=== PATIENT | male | born 1985 | race Native Hawaiian/Other Pacific Islander ===

== ENCOUNTER 2022-04-18 16:59 | Emergency (ER) | payer SELFPAY ==
[~2022-04-18] VITALS: Ht 177.8 cm; Wt 95.2 kg
[2022-04-18 17:54] LABS: BASOPHILS ABSOLUTE AUTO 0.05 K/mm3 (0.00-0.23); BASOPHILS PERCENT AUTO 1 % (0-2); EOSINOPHILS ABSOLUTE AUTO 0.06 K/mm3 (0.00-0.68); EOSINOPHILS PERCENT AUTO 1 % (0-6); Hematocrit 41.6 % (37.0-53.0); Hemoglobin 15.2 g/dL (13.5-17.5); IMMATURE GRAN ABSOLUTE AUTO 0.06 K/mm3 (0.00-0.10); IMMATURE GRAN PERCENT AUTO 1 % (0-1); LYMPHOCYTES ABSOLUTE AUTO 1.91 K/mm3 (0.84-5.20); LYMPHOCYTES PERCENT AUTO 21 % (21-46); MONOCYTES ABSOLUTE AUTO 0.71 K/mm3 (0.16-1.47); MONOCYTES PERCENT AUTO 8 % (4-13); Mean Corpuscular HGB 33.2 pg (26.0-34.0); Mean Corpuscular HGB Conc 36.5 g/dL (31.5-36.5); Mean Corpuscular Volume 91 fL (80-100); Mean Platelet Volume 11.3 fL (9.1-12.4); NEUTROPHILS ABSOLUTE AUTO 6.48 K/mm3 (1.96-9.15); NEUTROPHILS PERCENT AUTO 70 % (41-73); Platelet Count 197 K/mm3 (150-400); RDW Standard Deviation 39.5 fL (35.1-46.3); Red Blood Cell Count 4.58 M/mm3 (4.30-5.90); White Blood Cell Count 9.27 K/mm3 (4.00-11.30)
[2022-04-18 18:03] LABS: Albumin, Blood 3.8 g/dL (3.4-5.0); Albumin/Globulin Ratio 1.2 (0.8-1.8); Bilirubin, Total 0.6 mg/dL (0.1-1.0); Bun/Creatinine Ratio 12.1 (12.0-20.0); Calcium, Blood 8.7 mg/dL (8.5-10.1); Creatinine, Blood 0.74 mg/dL (0.60-1.20); Globulin, Blood 3.3 g/dL (2.2-4.0); Potassium, Blood 3.3 mmol/L (3.5-5.5); Total Protein, Blood 7.1 g/dL (6.4-8.2)
== END 2022-04-18 18:25 | disposition left against medical advice (07) ==
LOC: ER 16:59
PROVIDERS: Student in an Organized Health Care Education/Training Program
DX: M53.3 Sacrococcygeal disorders, not elsewhere classified (principal); W19.XXXA Unspecified fall, initial encounter; Z53.21 Procedure and treatment not carried out due to patient leaving prior to being seen by health care provider
CPT/HCPCS: 70450; 80053; 85025; 99284-25

== ENCOUNTER 2024-09-10 11:24 | Inpatient (IN) | payer OTHER ==
[~2024-09-10] VITALS: Ht 182.9 cm; Wt 130.2 kg
[2024-09-10] VITALS (29 sets, daily range): BP systolic 77–148; BP diastolic 50–101
[2024-09-10 11:50] LABS: BASOPHILS ABSOLUTE AUTO 0.06 K/mm3 (0.00-0.23); BASOPHILS PERCENT AUTO 1 % (0-2); EOSINOPHILS ABSOLUTE AUTO 0.05 K/mm3 (0.00-0.68); EOSINOPHILS PERCENT AUTO 1 % (0-6); Hemoglobin 15.4 g/dL (13.5-17.5); IMMATURE GRAN ABSOLUTE AUTO 0.02 K/mm3 (0.00-0.10); IMMATURE GRAN PERCENT AUTO 0 % (0-1); LYMPHOCYTES ABSOLUTE AUTO 2.12 K/mm3 (0.84-5.20); LYMPHOCYTES PERCENT AUTO 24 % (21-46); MONOCYTES ABSOLUTE AUTO 0.76 K/mm3 (0.16-1.47); MONOCYTES PERCENT AUTO 9 % (4-13); Mean Corpuscular HGB 32.5 pg (26.0-34.0); Mean Corpuscular HGB Conc 35.8 g/dL (31.5-36.5); Mean Corpuscular Volume 91 fL (80-100); Mean Platelet Volume 10.7 fL (9.1-12.4); NEUTROPHILS ABSOLUTE AUTO 5.81 K/mm3 (1.96-9.15); NEUTROPHILS PERCENT AUTO 66 % (41-73); Platelet Count 213 K/mm3 (150-400); RDW Coefficient Variation 12.4 % (11.7-14.2); RDW Standard Deviation 41.2 fL (35.1-46.3); Red Blood Cell Count 4.74 M/mm3 (4.30-5.90); White Blood Cell Count 8.82 K/mm3 (4.00-11.30)
[2024-09-10] MEDS ORDERED: LORazepam 2 MG/ML 1ML Injection ONE (12:02)
[2024-09-10 12:17] LABS: Alanine Aminotransfer (ALT/SGP 306 U/L (12-78); Albumin, Blood 3.5 g/dL (3.4-5.0); Alk Phos 74 U/L (50-136); Anion Gap 8 mmol/L (3-11); Aspartate Aminotrans (AST/SGOT 222 U/L (12-37); Bilirubin, Total 0.1 mg/dL (0.1-1.0); Blood Urea Nitrogen 9 mg/dL (8-24); Bun/Creatinine Ratio 12.4 (12.0-20.0); CO2, Blood 24 mmol/L (21-32); Calcium, Blood 8.6 mg/dL (8.5-10.1); Chloride, Blood 111 mmol/L (98-108); Creatinine, Blood 0.72 mg/dL (0.60-1.20); Ethanol (Alcohol), Blood, Med 152 mg/dL; Globulin, Blood 3.5 g/dL (2.2-4.0); Glomerular Filtration Rate 119 (60-); Glucose, Blood 110 mg/dL (70-99); Potassium, Blood 3.6 mmol/L (3.5-5.5); Sodium, Blood 139 mmol/L (136-145)
[2024-09-10 12:18] LABS: Acetaminophen, Random <2.0 ug/mL (10.0-30.0)
[2024-09-10 12:20] LABS: Salicylate 55.1 mg/dL (2.8-20.0)
[2024-09-10 12:32] LABS: Influenza A, PCR NEGATIVE (NEGATIVE); Influenza B, PCR NEGATIVE (NEGATIVE); Resp Syncytial Virus, PCR NEGATIVE (NEGATIVE); SARS-Cov-2 (COVID-19) PCR, MMC NEGATIVE (NEGATIVE)
[2024-09-10] MEDS ORDERED: LORazepam 2 MG/ML 1ML Injection IV ONE (12:35)
[2024-09-10 12:46] LABS: Source, Urine Clean Catch
[2024-09-10 12:50] LABS: Appearance, Urine Clear (Clear); Bilirubin, Urine Neg (Neg); Blood, Urine 2+ (Neg); Glucose Qualitative, Urine Neg (Neg); Ketones, Urine Neg (Neg); Leukocyte Esterase, Urine Neg (Neg); Nitrite, Urine Neg (Neg); Protein, Urine 1+ (Neg); Specific Gravity, Urine 1.015 (1.003-1.022); Urobilinogen, Urine NORM (Normal); pH, Urine 6.5 (5.0-8.0)
[2024-09-10 12:53] LABS: Base Excess Venous -2.7 mmol/L; Bicarbonate Venous 23.5 mmol/L (24.0-30.0); PCO2 Venous 28.1 mmHg (38-42); pH Blood Venous 7.48 (7.34-7.37)
[2024-09-10 12:54] LABS: pH, Urine 6.5 (5.0-8.0)
[2024-09-10] MEDS ORDERED: LORazepam 2 MG/ML 1ML Injection IV PRN ×2 (12:55)
[2024-09-10] MEDS ORDERED: ChlordiazePOXIDE 25 MG Cap PO PRN ×2 (12:55)
[2024-09-10 12:58] LABS: Color, Urine Pale Yellow (P-Yellow)
[2024-09-10] MEDS ORDERED: NS 1,000 ML IV SCH ×2 (13:00→21:25)
[2024-09-10] MEDS ORDERED: SODIUM BICARB IV SCH (13:00)
[2024-09-10] MEDS ORDERED: DEXTROSE 5% IV SCH (13:00)
[2024-09-10] MEDS ORDERED: POTASSIUM CHLORIDE 40 MEQ IV SCH (13:00)
[2024-09-10 13:02] LABS: Bacteria Not Seen /hpf; Squamous Epithelial Cells Rare /hpf (Few); White Blood Cells, Urine 0-2 /hpf (0-5)
[2024-09-10 13:03] LABS: U Amphetamine Screen Not Detected
[2024-09-10 13:04] LABS: U Barbituate Screen Not Detected; U Benzodiazapine Screen Not Detected; U Buprenorphine Screen Not Detected; U Cannabinoids Screen Not Detected; U Cocaine Screen Not Detected; U Methadone Screen Not Detected; U Methamphetamine Screen Not Detected; U Opiates Screen Not Detected; U Oxycodone Screen Not Detected; U Phencyclidine Screen Not Detected
[2024-09-10] MEDS ORDERED: Potassium Chloride 20 MEQ TabCR PO STA (13:13)
[2024-09-10] MEDS ORDERED: Dextrose 50% 50 ML Syringe IV STA (13:24)
[2024-09-10 14:19] LABS: Base Excess Venous -1.5 mmol/L; Bicarbonate Venous 24.8 mmol/L (24.0-30.0); PCO2 Venous 25.9 mmHg (38-42); pH Blood Venous 7.52 (7.34-7.37)
[2024-09-10 14:28] LABS: Bun/Creatinine Ratio 11.1 (12.0-20.0); Calcium, Blood 8.6 mg/dL (8.5-10.1); Creatinine, Blood 0.72 mg/dL (0.60-1.20); Potassium, Blood 4.4 mmol/L (3.5-5.5)
[2024-09-10 15:22] LABS: BASOPHILS ABSOLUTE AUTO 0.04 K/mm3 (0.00-0.23); BASOPHILS PERCENT AUTO 0 % (0-2); EOSINOPHILS ABSOLUTE AUTO 0.02 K/mm3 (0.00-0.68); EOSINOPHILS PERCENT AUTO 0 % (0-6); Hematocrit 44.4 % (37.0-53.0); Hemoglobin 16.3 g/dL (13.5-17.5); IMMATURE GRAN ABSOLUTE AUTO 0.07 K/mm3 (0.00-0.10); IMMATURE GRAN PERCENT AUTO 0 % (0-1); LYMPHOCYTES ABSOLUTE AUTO 0.85 K/mm3 (0.84-5.20); LYMPHOCYTES PERCENT AUTO 5 % (21-46); MONOCYTES ABSOLUTE AUTO 0.74 K/mm3 (0.16-1.47); MONOCYTES PERCENT AUTO 5 % (4-13); Mean Corpuscular HGB 32.6 pg (26.0-34.0); Mean Corpuscular HGB Conc 36.7 g/dL (31.5-36.5); Mean Corpuscular Volume 89 fL (80-100); Mean Platelet Volume 10.9 fL (9.1-12.4); NEUTROPHILS ABSOLUTE AUTO 14.43 K/mm3 (1.96-9.15); NEUTROPHILS PERCENT AUTO 89 % (41-73); Platelet Count 241 K/mm3 (150-400); RDW Coefficient Variation 12.6 % (11.7-14.2); RDW Standard Deviation 41.5 fL (35.1-46.3); White Blood Cell Count 16.15 K/mm3 (4.00-11.30)
[2024-09-10 15:47] LABS: Base Excess Venous 20.7 mmol/L; Bicarbonate Venous 42.6 mmol/L (24.0-30.0); PCO2 Venous 45.5 mmHg (38-42); pH Blood Venous 7.58 (7.34-7.37)
[2024-09-10] MEDS ORDERED: Charcoal/Sorbitol 50 GM (Cherry Flavor) PO SCH (16:00)
[2024-09-10] MEDS ORDERED: Thiamine HCl 100 MG in NS 50 ML IV SCH (16:00)
[2024-09-10] MEDS ORDERED: Etomidate 2MG / ML 10ML Vial XX ONE (16:31)
[2024-09-10] MEDS ORDERED: Rocuronium Bromide 10 MG/ML 5ML Injection IV ONE (16:31)
[2024-09-10] MEDS ORDERED: Midazolam HCl 1MG / ML 2ML Vial ONE (16:57)
--- NOTE | 2024-09-10 17:02 | NUR ---
EMERGENCY INTUBATION PT RECIEVED 4MG OF VERSED AT 1700. 50 DEEPALI GIVEN AND 30 ATOMIDATE. PT INTUBATED AT 1709. PT EMERGENTLY INTUBATED D/T INCREASING AGGITATION AND NONCOMPLIANCE WITH AN INCREASED RISK TO SELF. WILL CONTINUE WITH THE PLAN OF CARE.
[2024-09-10] MEDS ORDERED: propofoL 100 ML IV SCH (17:15)
[2024-09-10] MEDS ORDERED: FentaNYL Citrate 50 MCG/ML 2 ML Injection ONE (17:23)
[2024-09-10] MEDS ORDERED: FentaNYL Citrate 50 MCG/ML 2 ML Injection IV ONE ×2 (17:25→17:45)
[2024-09-10] MEDS ORDERED: Midazolam HCl 1MG / ML 2ML Vial IV ONE (17:30)
[2024-09-10 18:18] LABS: Bun/Creatinine Ratio 10.7 (12.0-20.0); Calcium, Blood 8.4 mg/dL (8.5-10.1); Creatinine, Blood 0.84 mg/dL (0.60-1.20); Magnesium, Blood 2.1 mg/dL (1.6-2.4); Potassium, Blood 3.9 mmol/L (3.5-5.5)
[2024-09-10 18:20] LABS: Salicylate 87.2 mg/dL (2.8-20.0)
[2024-09-10] MEDS ORDERED: Phenylephrine HCl in 0.9% NaCl 250 ML IV SCH (18:30)
[2024-09-10] MEDS ORDERED: Lactated Ringer's 500 ML IV ONE (18:30)
[2024-09-10 19:06] LABS: Base Excess Venous 3.3 mmol/L; Bicarbonate Venous 26.4 mmol/L (24.0-30.0); PCO2 Venous 41.5 mmHg (38-42); pH Blood Venous 7.43 (7.34-7.37)
[2024-09-10] MEDS ORDERED: Dextrose 50% 50 ML Vial ONE (19:12)
[2024-09-10] MEDS ORDERED: Dextrose 50% 50 ML Vial IV SCH (19:15)
--- NOTE | 2024-09-10 19:30 | NUR ---
PATIENT ARRIVED FROM ED AT 1615. PT CONFUSED ALERT TO SELF ONLY AND COOPERATIVE. PT BECAME AGITATED DURING PLACEMENT OF TRIALYSIS CATHETER. RASS +4. BOTH PERIPHREAL IV'S DISPLACED AT THIS TIME, INFILTRATION OF RAC- BICARB/K, SWELLING VISIBLE. IV ATIVAN ADMINISTERED WITH NO CHANGE. PT WAS ATTEMPTING TO EXIT BED AND KICKING WHILE TRYING TO GRAB AT HIS TRIALYIS CATH. HE WAS NOT REDIRECTABLE AT THIS TIME. PT WAS MEDICATED AND INTUBATED URGENTLY. PATIENT WAS DIAPHORETIC AND AND TACHYPNEIC. NEURO: AXO X1 UPON ARRIVAL TO UNIT. CONFUSED. INTUBATED (SEE NOTE) AND PROPOFOL TITRATED TO 60MCG/KG/MIN DUE TO AGITATION/NOT TOLERATING VENT. LABS WERE DRAWN PER DR FREEMAN/JANE. CARDIAC: SINUS TACH HR 120-150S. SBP 130-150 ON ARRIVAL. PT BECAME HYPOTENSIVE MAP <65 AFTER INTUBATION WITH HR INCREASING TO 170S. NOTIFIED DR LARA. VERBAL ORDERS PLACED FOR NEOSYNEPHRINE GTT TITRATE MAP >65 AND LR 500ML BOLUS. ST ELEVATION NOTED ON TELE WITH HR INCREASE EKG COMPLETED. LUNGS: PT ON RA UPON ARRIVAL WITH RR 22-35. KUSSMALS TYPE BREATHING. SPO2 MAINTAINING >95% ON RA. VENT SETTINGS: BEING ADJUSTED AT CHANGE OF SHIFT. GI: OG TUBE PLACED. XR VERIFICATION WITH ETT TUBE/TRIALYSIS CATH REVIEWED BY DR LARA AT BEDSIDE AND OK FOR USE. : HERRERA CATHETER PLACED AFTER INTUBATION FOR CRITICAL I/O'S, LARGE AMT OF URINE OUTPUT AFTER PLACEMENT. PATIENT BELONGINGS WERE BROUGHT UP WITH HIM FROM THE ER AND PLACED IN THE LOCKED CUPBOARDS IN THE [facility]UN[facility] ROOM.
[2024-09-10 20:00] LABS: Bun/Creatinine Ratio 9.7 (12.0-20.0); Creatinine, Blood 1.03 mg/dL (0.60-1.20); Potassium, Blood 5.6 mmol/L (3.5-5.5)
--- NOTE | 2024-09-10 20:01 | NUR ---
BELONGINGS ALL BELONGINGS SENT HOME WITH MOTHER GILBERTO LOVE, INCLUDING CURTIS WITH FORTUNE AND CREDIT CARDS.
[2024-09-10 20:06] LABS: Base Excess Venous 8.2 mmol/L; Bicarbonate Venous 31.3 mmol/L (24.0-30.0)
[2024-09-10 20:07] LABS: pH Blood Venous 7.55 (7.34-7.37)
[2024-09-10 21:38] LABS: Bicarbonate Venous 31.9 mmol/L (24.0-30.0); pH Blood Venous 7.54 (7.34-7.37)
[2024-09-10 22:05] LABS: Base Excess Venous 9.8 mmol/L; Bicarbonate Venous 32.8 mmol/L (24.0-30.0); PCO2 Venous 36.6 mmHg (38-42)
[2024-09-10 22:06] LABS: pH Blood Venous 7.55 (7.34-7.37)
[2024-09-10 22:12] LABS: Bun/Creatinine Ratio 7.8 (12.0-20.0); Calcium, Blood 8.3 mg/dL (8.5-10.1); Creatinine, Blood 1.03 mg/dL (0.60-1.20); Potassium, Blood 3.7 mmol/L (3.5-5.5)
[2024-09-10 23:39] LABS: Base Excess Venous 11.8 mmol/L; Bicarbonate Venous 34.3 mmol/L (24.0-30.0); PCO2 Venous 37.7 mmHg (38-42); PO2 Venous 43.7 mmHg (38-42)
[2024-09-10 23:40] LABS: pH Blood Venous 7.56 (7.34-7.37)
[2024-09-11] VITALS (105 sets, daily range): BP systolic 86–1013; BP diastolic 51–91
[2024-09-11] MEDS ORDERED: Dextrose 50% 50 ML Vial IV ONE ×5 (00:30→18:20)
[2024-09-11 00:58] LABS: Bun/Creatinine Ratio 7.5 (12.0-20.0); Calcium, Blood 8.1 mg/dL (8.5-10.1); Creatinine, Blood 0.93 mg/dL (0.60-1.20); Potassium, Blood 3.5 mmol/L (3.5-5.5)
[2024-09-11 02:45] LABS: Hematocrit 42.2 % (37.0-53.0); Hemoglobin 15.2 g/dL (13.5-17.5)
[2024-09-11 02:46] LABS: Base Excess Venous 11.5 mmol/L; Bicarbonate Venous 34.3 mmol/L (24.0-30.0); PCO2 Venous 38.1 mmHg (38-42)
[2024-09-11 02:47] LABS: pH Blood Venous 7.56 (7.34-7.37)
[2024-09-11 03:21] LABS: Magnesium, Blood 1.9 mg/dL (1.6-2.4); Salicylate 47.9 mg/dL (2.8-20.0)
[2024-09-11 03:26] LABS: Albumin, Blood 3.5 g/dL (3.4-5.0); Albumin/Globulin Ratio 1.1 (0.8-1.8); Bilirubin, Total 0.4 mg/dL (0.1-1.0); Bun/Creatinine Ratio 7.8 (12.0-20.0); Calcium, Blood 8.2 mg/dL (8.5-10.1); Creatinine, Blood 1.15 mg/dL (0.60-1.20); Globulin, Blood 3.3 g/dL (2.2-4.0); Phosphorus, Blood 2.3 mg/dL (2.5-4.9); Potassium, Blood 3.5 mmol/L (3.5-5.5); Total Protein, Blood 6.8 g/dL (6.4-8.2)
[2024-09-11 04:34] LABS: Base Excess Venous 12.1 mmol/L; Bicarbonate Venous 34.5 mmol/L (24.0-30.0); PCO2 Venous 37.9 mmHg (38-42)
[2024-09-11 04:35] LABS: pH Blood Venous 7.56 (7.34-7.37)
[2024-09-11] MEDS ORDERED: POTASSIUM CHLORIDE 20 MEQ IV SCH (05:25)
[2024-09-11] MEDS ORDERED: DEXTROSE 5% IV SCH ×2 (05:25→12:25)
[2024-09-11] MEDS ORDERED: SODIUM BICARB IV SCH ×2 (05:25→12:25)
--- NOTE | 2024-09-11 05:50 | NUR ---
END OF SHIFT REPORT: THIS PT REMAINS ON VENTILATOR AND SEDATED WITH PROPOFOL GTT. AT THE BEGINNING OF THE SHIFT PATIENT WAS AWAKE AND AGITATED, HR IN THE 170s AND ON PHENYLEPHERINE GTT WITH SOFT BP. DIALYSIS WAS STARTED ON THIS PT AND 3 FILTERS WERE USED FOR A TOTAL RUN TIME OF ABOUT 7 HOURS. SERIAL VBGs AND SALICYLATE LEVELS WERE TAKEN THROUGHOUT THE NIGHT. THESE LEVELS WERE DISCUSSED WITH POISON CONTROL AND DR LARA THROUGHOUT THE EVENING AND NIGHT. DISCUSSED ELECTROLYTES WITH DR FREEMAN. PLAN IS TO START BICARB DRIP UNTIL DIALYSIS CAN BE RESTARTED THIS AM. PT REMAINS ON PROPOFOL GTT BUT IS AROUSABLE. HE SEEMS TO BE TRACKING ME WHEN I SPEAK TO HIM. HEART RATES HAVE BEEN SINUS TACH 110-120s. PHENYLEPHERINE GTT CURRENTLY ON STANDBY. HE IS TOLERATING VENT AND COMFORTABLE.
[2024-09-11] MEDS ORDERED: Potassium Phosphate Dibasic 10 MM in Dextrose 5% 250 ML IV ONE (06:15)
[2024-09-11] MEDS ORDERED: Cetylpyridinium Chloride 1 EA MISC MT SCH (08:00)
[2024-09-11 08:13] LABS: Base Excess Venous 10.8 mmol/L; Bicarbonate Venous 33.3 mmol/L (24.0-30.0); PCO2 Venous 41.3 mmHg (38-42); pH Blood Venous 7.52 (7.34-7.37)
--- NOTE | 2024-09-11 08:42 | NUR ---
ASSUMUPTION OF CARE: ASSUMED CARE AT START OF SHIFT (0700). PT IS DOING WELL, THEY ARE LAYING IN BED INTUBATED AND SEDATED. PROPOFOL RUNNING PER EMR ORDERS, WHEN AWAKE PT WILL TRACK WITH EYES BUT UNABLE TO FOLLOW COMMANDS AND ANSWER QUESTIONS AT THIS TIME. LUNG SOUNDS ARE CLR AND EQUAL BILATERAL AND DIMINISHED IN THE BASES, ET TUBE SIZE 8.0 AND 24 @ TEETH, VENT SETTIN/640/5/70%. SINUS TACH WITH SYSTOLIC BP: 100'S AND HR: 120'S. HAS PERIPHERAL IV'S 18G IN L FOREARM AND 20G IN R FOREARM, TRIALYSIS CATH IN R NECK. HAS HERRERA CATHETER IN PLACE AND DRAING TO GRAVITY, OG TUBE IN PLACE. SOFT RESTRAINTS ON UPPER EXTREMITIES, WHEN PT IS MORE AWAKE THEY WILL TRY TO GRAB/REMOVE LINES AND CORDS AND MOVE AROUND IN BED. PT WILL RECEIVE DIALYSIS LATER THIS MORNING. LINES, CORDS, AN TUBES PLACED OUT OF REACH. WILL CONTINUE TO MONITOR.
[2024-09-11 08:50] LABS: Albumin, Blood 3.4 g/dL (3.4-5.0); Bilirubin, Total 0.4 mg/dL (0.1-1.0); Bun/Creatinine Ratio 8.3 (12.0-20.0); Creatinine, Blood 1.8 mg/dL (0.60-1.20); Globulin, Blood 3.3 g/dL (2.2-4.0); Potassium, Blood 3.8 mmol/L (3.5-5.5); Salicylate 60.4 mg/dL (2.8-20.0); Total Protein, Blood 6.7 g/dL (6.4-8.2)
[2024-09-11] MEDS ORDERED: Potassium Chloride 10 Meq Tablet SA PO ONE (09:46)
[2024-09-11] MEDS ORDERED: Charcoal/Sorbitol 50 GM (Cherry Flavor) PO SCH (09:47)
[2024-09-11] MEDS ORDERED: Pantoprazole Sodium 40 MG Injection IV SCH (10:23)
[2024-09-11] MEDS ORDERED: Dextrose 50% 50 ML Vial IV PRN (10:40)
--- NOTE | 2024-09-11 11:46 | NUR ---
REQUESTED RECORDS FROM [facility] VIA FAX. REQUESTED LAST VISIT NOTE, MEDICATION LIST, H&P AND POLST/AD ON FILE.
[2024-09-11 11:58] LABS: Base Excess Venous 12.4 mmol/L; Bicarbonate Venous 35.9 mmol/L (24.0-30.0); PCO2 Venous 32.5 mmHg (38-42)
[2024-09-11 12:00] LABS: pH Blood Venous 7.62 (7.34-7.37)
[2024-09-11] MEDS ORDERED: Hydrogen Peroxide 1.5 % Solution MT SCH (12:00)
[2024-09-11] MEDS ORDERED: POTASSIUM CHLORIDE 40 MEQ IV SCH (12:25)
[2024-09-11 12:38] LABS: Bun/Creatinine Ratio 6.5 (12.0-20.0); Calcium, Blood 8.1 mg/dL (8.5-10.1); Creatinine, Blood 0.92 mg/dL (0.60-1.20); Magnesium, Blood 1.9 mg/dL (1.6-2.4); Phosphorus, Blood 1.3 mg/dL (2.5-4.9); Potassium, Blood 3.3 mmol/L (3.5-5.5); Salicylate 29.8 mg/dL (2.8-20.0)
[2024-09-11] MEDS ORDERED: Potassium Phos/Sodium Phos 250 MG PACK PO ONE (12:44)
[2024-09-11] MEDS ORDERED: PALIPERIDONE PO (12:55)
[2024-09-11] MEDS ORDERED: Lithium Carbon450 MG PO (12:56)
[2024-09-11] MEDS ORDERED: Potassium Phosphate Dibasic 15 MM in Dextrose 5% 250 ML IV STA (12:56)
--- NOTE | 2024-09-11 12:56 | NUR ---
SPOKE TO [facility] TO GET UPDATED MEDICATION LIST. PT IS REPORTED TO HAVE ACTIVE PRESCRIPTIONS OF LITHIUM ER 450 MG TAB, 2 TABS PO BEDTIME AND INVEGA ER 9 MG TAB PO DAILY WHICH WAS RECENTLY TITRATED DOWN FROM 12 MG DAILY. LAST LITHIUM LEVEL WAS CHECKED ON 06/21/[address] WAS [address] SPEARS AND PRIMARY RN WITH ABOVE INFORMATION.
[2024-09-11 14:41] LABS: Potassium, Blood 3.1 mmol/L (3.5-5.5); Salicylate 25.8 mg/dL (2.8-20.0)
[2024-09-11] MEDS ORDERED: Potassium Chloride 20 MEQ/15 ML UDC PO ONE (14:55)
[2024-09-11 16:33] LABS: Bicarbonate Venous 34.7 mmol/L (24.0-30.0); pH Blood Venous 7.47 (7.34-7.37)
[2024-09-11 16:49] LABS: Albumin, Blood 2.8 g/dL (3.4-5.0); Albumin/Globulin Ratio 1.1 (0.8-1.8); Bilirubin, Total 0.4 mg/dL (0.1-1.0); Bun/Creatinine Ratio 5.1 (12.0-20.0); Calcium, Blood 7.9 mg/dL (8.5-10.1); Creatinine, Blood 1.18 mg/dL (0.60-1.20); Globulin, Blood 2.5 g/dL (2.2-4.0); Magnesium, Blood 2.4 mg/dL (1.6-2.4); Phosphorus, Blood 1.7 mg/dL (2.5-4.9); Potassium, Blood 2.8 mmol/L (3.5-5.5); Total Protein, Blood 5.3 g/dL (6.4-8.2)
[2024-09-11] MEDS ORDERED: Potassium Phosphate Dibasic 15 MM in Dextrose 5% 250 ML IV SCH (17:00)
--- NOTE | 2024-09-11 18:40 | NUR ---
SHIFT SUMMARY: PT IS DOING WELL, RESTING IN BED. THEY ARE VENTILATED AND SEDATED. PROPOFOL AT 40MCG/KG/MIN. VENT: 16/640/5/30%. SPO2 >95%. WHEN AWAKE THEY ARE ABLE TO TRACK WITH EYES BUT UNABLE TO FOLLOW COMMANDS AT THIS TIME. SINUS TACH WITH SYSTOLIC BP 100 - 120'S AND HR: 100'S. PERIPHERAL IV'S IN L FOREARM AND R FOREARM. TRIALYSIS CATHETER IN R NECK. HERRERA CATHER DRINING TO GRAVITY WITH GREEN TINTED URINE OUTPUT. RECTAL TUBE PLACED, DRAINING TO GRAVITY AND BLACK LIQUID STOOLS. PT RECEIEVED 3 DOSES OF ACTIVATED CHARCOAL VIA OG TUBE. K+ LEVELS HAVE BEEN DECREASING THROUGHOUT THE SHIFT, THEY RECEIVED KCL, K+PHOS, AND K+ ADDED TO SODIUM BICARD GTT. POSION CONTROL HAS BEEN UPDATED ON PT THROUGHOUT THE DAY. SACLICYLATE LEVELS HAVE BEEN DECREASING THROUGHOUT THE DAY WELL. LINES, CORDS, AND TUBES HAVE BEEN PLACED OUT THE REACH.
--- NOTE | 2024-09-11 20:24 | NUR ---
ASSUMPTION OF CARE: ASSUMED CARE OF PT AT 1905 AND PT IS INTUBATED AND SEDATED ON 40MCG/KG/MIN OF PROPOFOL DECREASED TO 20MCG/KG/MIN FOR NEURO ASSESSMENT.PT IS ABLE TO FOLLOW SOME COMMANDS LIKE WIGGLING TOES AND NODS HEAD NO TO PAIN AND TRACKS YOU WITH HIS EYES.PROPOFOL TURNED BACK UP TO 30 MCG/KG/MIN BECAUSE PT WAS UNCOMFORTABLE AND ALSO GIVEN ATIVAN BY RN (SEE EMAR). PT IS CURRENTLY RECIEVING DIALYSIS IN THE ROOM.PT HAS FAMILY AT BEDSIDE.PT HAS BICARB INFUSING AT 200ML/HR.PT HAS A PATENT TRIALYSIS CATH TO THE RIGHT NECK.PT HAS PATENT PERIPHERAL IV'S TO LFA & RAC. PT HAS PATENT HERRERA DRAINING TO GRAVITY.PT HAS A PATENT RECTAL TUBE DRAINING TO GRAVITY. PT HAS OG TUBE CURRENTLY CLAMPED AFTER RECIEVING CHARCOAL. HR IS CURRENTLY IN THE 70-80'S WITH SBP IN THE 90'S-100'S. CURRENTLY IN SR. PT HAS MAINTAINED SATS ABOVE 94-97%.VENT SETTINGS AT AC/VC 16/640/5/30%.LUNG SOUNDS CLEAR.
[2024-09-11] MEDS ORDERED: Potassium Chl 20MEQ/Water100ML 100 ML IV ONE ×2 (20:50→23:30)
[2024-09-11 20:53] LABS: Base Excess Venous 16.8 mmol/L; Bicarbonate Venous 38.2 mmol/L (24.0-30.0); PCO2 Venous 45.2 mmHg (38-42); pH Blood Venous 7.55 (7.34-7.37)
[2024-09-11] MEDS ORDERED: FentaNYL Citrate 50 MCG/ML 2 ML Injection IV PRN (22:25)
[2024-09-11 23:09] LABS: Magnesium, Blood 1.8 mg/dL (1.6-2.4); Salicylate 8.2 mg/dL (2.8-20.0)
[2024-09-11 23:23] LABS: Albumin, Blood 2.8 g/dL (3.4-5.0); Anion Gap 4 mmol/L (3-11); Blood Urea Nitrogen 3 mg/dL (8-24); Bun/Creatinine Ratio 4.3 (12.0-20.0); CO2, Blood 34 mmol/L (21-32); Calcium, Blood 7.9 mg/dL (8.5-10.1); Chloride, Blood 107 mmol/L (98-108); Glomerular Filtration Rate 120 (60-); Glucose, Blood 102 mg/dL (70-99); Phosphorus, Blood 0.8 mg/dL (2.5-4.9); Sodium, Blood 142 mmol/L (136-145)
[2024-09-11] MEDS ORDERED: Potassium Phosphate Dibasic 20 MM in Dextrose 5% 500 ML IV ONE (23:30)
[2024-09-12] VITALS (41 sets, daily range): BP systolic 98–149; BP diastolic 62–100
[2024-09-12 00:34] LABS: Base Excess Venous 13.8 mmol/L; PCO2 Venous 41.6 mmHg (38-42)
[2024-09-12 00:35] LABS: pH Blood Venous 7.55 (7.34-7.37)
[2024-09-12 04:15] LABS: Base Excess Venous 10.7 mmol/L; Bicarbonate Venous 34.6 mmol/L (24.0-30.0); PCO2 Venous 29.5 mmHg (38-42)
[2024-09-12 04:16] LABS: pH Blood Venous 7.64 (7.34-7.37)
[2024-09-12 04:58] LABS: Albumin, Blood 2.7 g/dL (3.4-5.0); Anion Gap 6 mmol/L (3-11); Blood Urea Nitrogen 5 mg/dL (8-24); Bun/Creatinine Ratio 5.2 (12.0-20.0); CO2, Blood 31 mmol/L (21-32); Calcium, Blood 7.5 mg/dL (8.5-10.1); Chloride, Blood 105 mmol/L (98-108); Creatinine, Blood 0.95 mg/dL (0.60-1.20); Glomerular Filtration Rate 104 (60-); Glucose, Blood 106 mg/dL (70-99); Magnesium, Blood 1.7 mg/dL (1.6-2.4); Phosphorus, Blood 1.9 mg/dL (2.5-4.9); Potassium, Blood 2.7 mmol/L (3.5-5.5); Salicylate 2.5 mg/dL (2.8-20.0); Sodium, Blood 139 mmol/L (136-145)
--- NOTE | 2024-09-12 05:09 | NUR ---
SHIFT SUMM: VENT SETTINGS ARE 16/600/5/35% AND SPO2 HAS BEEN AT 90-97%. VENT SETTINGS ADJUSTED PER POISON CONTROL RECCOMENDATION WITH ORDERS FROM DR. WOODS FOR ADJUSTMENT. HR REMAINED IN 70-80'S W/SBP 90-110'S. PT CONTINUES TO RESPOND TO PAIN AND VERBAL STIMULI AND WILL NOD YES WHEN HE IS ASKED IF HE IS IN PAIN AND FOLLOW SIMPLE COMMANDS LIKE SQUEEZING HANDS AND WIGGLING TOES WHEN ASKED.PT RECIEVED PRN ATIVAN AND FENTANYL WHEN HE IS RESTLESS AND AGITATED WITH VENT OR IN PAIN. PROPOFOL AT 40MCG/KG/MIN.HERRERA AND RECTAL TUBE REMAIN PATENT AND DRAINING TO GRAVITY. OG TUBE IS CURRENTLY CLAMPED AND PERIPHERALS REMAIN PATENT. TRIALYSIS CATH IN R NECK REMAINS PATENT. PT RECIEVED A BED BATH THIS SHIFT AND CATH CARE COMPLETED. Q2 BS HAVE BEEN BETWEEN 92-105 THIS SHIFT. PER POISON CONTROL RECCOMENDATION AND PEDRO FRAZIER D/C'ED. KCL AND KPHOS GIVEN THIS SHIFT.
[2024-09-12] MEDS ORDERED: Potassium Chloride 40 MEQ in NS 250 ML IV ONE ×2 (05:15→15:00)
[2024-09-12] MEDS ORDERED: Potassium Chloride 30 MEQ IV ONE (05:30)
[2024-09-12] MEDS ORDERED: Potassium Chl 10MEQ/Water100ML 100 ML IV SCH (05:40)
[2024-09-12] MEDS ORDERED: Potassium Phosphate Dibasic 10 MM in Dextrose 5% 250 ML IV ONE ×2 (05:45→12:15)
[2024-09-12] MEDS ORDERED: Enoxaparin 40 MG/0.4 ML SYR SC SCH (07:00)
--- NOTE | 2024-09-12 08:19 | NUR ---
ASSUMPTION OF CARE: ASSUMED CARE AT START OF SHIFT (0700). PT IS SEDATED AND RESTING IN BED, THEY ARE RESPONSIVE TO VERBAL STIMULI BUT UNABLE TO ANSWER QUESTIONS OR FOLLOW COMMANDS AT THIS TIME. LUNG SOUNDS ARE CLR AND EQUAL BILATERAL, VENT SETTINGS: 16/600/5/35% AND SPO2 >97%. THEY ARE CURRENTLY IN SINUS RYTHM WITH SYSTOLIC BP 100'S, MAP >65 AND HR: 80'S. RECTAL TUBE IN PLACE AND DRAINING TO GRAVITY WITH BLACK LIQUID STOOLS. HERRERA CATHETER IN PLACE AND DRAING TO GRAVITY. THEY HAVE OG TUBE WITH 44CM OF TUBE EXPOSED FROM THE TEETH. TRIALYSIS CATHER IN R NECK. PERIPHERAL IVS: L & R FOREARM. SALICYLATE LEVLE IS DOWN TO 2.5. PT RECEIVED DIALYSIS LAST NIGHT. LINES, CORDS, AND TUBES PLACED OUT OF REACH.
[2024-09-12 11:07] LABS: Base Excess Venous 7.9 mmol/L; Bicarbonate Venous 30.5 mmol/L (24.0-30.0); pH Blood Venous 7.46 (7.34-7.37)
[2024-09-12] MEDS ORDERED: Mag Sulfate 1 GM/D5% 100ML 100 ML IV STA (11:19)
[2024-09-12] MEDS ORDERED: CALCIUM GLUC IN NACL, ISO-OSM 100 ML IV ONE (11:20)
[2024-09-12] MEDS ORDERED: NS 250 ML IV PRN (11:55)
[2024-09-12 11:57] LABS: Albumin, Blood 2.6 g/dL (3.4-5.0); Anion Gap 5 mmol/L (3-11); Blood Urea Nitrogen 7 mg/dL (8-24); Bun/Creatinine Ratio 6.9 (12.0-20.0); CO2, Blood 31 mmol/L (21-32); Calcium, Blood 7.3 mg/dL (8.5-10.1); Chloride, Blood 105 mmol/L (98-108); Creatinine, Blood 1.02 mg/dL (0.60-1.20); Glomerular Filtration Rate 96 (60-); Glucose, Blood 97 mg/dL (70-99); Magnesium, Blood 1.6 mg/dL (1.6-2.4); Phosphorus, Blood 2.7 mg/dL (2.5-4.9); Potassium, Blood 2.7 mmol/L (3.5-5.5); Salicylate <1.7 mg/dL (2.8-20.0); Sodium, Blood 138 mmol/L (136-145)
--- NOTE | 2024-09-12 15:11 | NUR ---
UPDATE/EXTUBATION: PT EXTUBATED ON 09/12/2024 @ 1407, DR. KEENAN AND RT WERE PRESENT IN ROOM DURING EXTUBATATION. PT WAS EXTUBATED TO ROOM AIR AND IS DOING WELL. PT'S FAMILY BROUGHT BACK INTO POST EXTUBATION.
[2024-09-12 16:00] LABS: HEPATITIS B SURFACE ANTIBODY >1000.00 IU/L
[2024-09-12 16:13] LABS: HEPATITIS B SURFACE ANTIGEN Negative (Negative)
[2024-09-12 16:34] LABS: HBV CORE ANTIBODIES,TOTAL Negative (Negative)
[2024-09-12 17:33] LABS: Albumin, Blood 2.8 g/dL (3.4-5.0); Anion Gap 7 mmol/L (3-11); Blood Urea Nitrogen 8 mg/dL (8-24); Bun/Creatinine Ratio 8.4 (12.0-20.0); CO2, Blood 30 mmol/L (21-32); Calcium, Blood 8.3 mg/dL (8.5-10.1); Chloride, Blood 104 mmol/L (98-108); Creatinine, Blood 0.95 mg/dL (0.60-1.20); Glomerular Filtration Rate 104 (60-); Glucose, Blood 106 mg/dL (70-99); Magnesium, Blood 1.8 mg/dL (1.6-2.4); Phosphorus, Blood 3.2 mg/dL (2.5-4.9); Potassium, Blood 3.2 mmol/L (3.5-5.5); Sodium, Blood 138 mmol/L (136-145)
--- NOTE | 2024-09-12 19:17 | NUR ---
SHIFT SUMMARY: PT IS DOING WELL AND RESTING IN BED. THEY WERE EXTUBATED AT 1407 AND HAVE BEEN ON ROOM AIR, SPO2 >97%. THEY ARE ALERT AND ORIENTED AND ABLE TO FOLLOW COMMANDS. PT WILL REACH UP AND TOUCH THEIR TRIALYSIS CATHER, THEY ARE REDIRECTABLE AND NEED TO BE REMINDED NOT TO TOUCH THE TRIALYSIS CATH. PT IS EAGER TO KNOW WHEN THEY CAN GET THE TRIALYSIS CATHERTER REMOVED. PT HAS SITTER. THEY HAVE BEEN IN SINUS RYTHM WITH SYSTOLIC BP 120'S MAP>65 AND HR IN THE 100-110'S. THEIR HERRERA CATHERTER HAS BEEN REMOVED AND URINAL HAS BEEN PLACED AT BEDSIDE. RECTAL TUBE IS IN PLACE AND BLACK LIQUID STOOL IS DRAINIING TO GRAVITY. TRIALYSIS CATHER IN RIJ, PERIPHERAL IV IN R FOREARM. PT IS STILL NPO AND HAVE BEEN TOLERATING WETTENED MOUTH SWABS UNTIL THEY ARE ABLE TO DRINK WATER. THE PT IS ABLE TO REPOSITION THEMSELF IN BED WITH MINIMAL ASSISTANCE. FAMILY HAS BEEN PRESENT AND VISITING WITH PT MOST OF THE DAY. LINES, CORDS, AND TUBES ARE PLACED OUT OF REACH.
[2024-09-12] MEDS ORDERED: Potassium Chl 20MEQ/Water100ML 100 ML IV ONE (19:30)
--- NOTE | 2024-09-12 20:31 | NUR ---
ASSUMPTION OF CARE NOTE: ASSUMED CARE OF PT AT 1905 AND PT IS A&OX3-4 WITH SOME CONFUSION BUT REORIENTABLE.PT IS ON RA W/SPO2 AT 92%. PT'S HR IS IN THE 90'S WITH SBP IN 140'S.PT HAD RECTAL TUBE D/C'D THIS SHIFT. PT IS USING URINAL. PT IS ABLE TO TOLERATE SMALL SIPS OF WATER. PT HAS A NEW PATENT IV TO THE RAC AND A PATENT TRIALYSIS CATH IN R NECK. PT IS STILL WEAK BUT ABLE TO MOVE ALL EXTREMETIES. DENIES SI, STATES HE HAD SOME "IMBALANCES IN HIS HEAD" AT THE TIME OF HIS ATTEMPT. DENIES N/V, HEADACHES, AUDITORY/VISUAL HALLUCINATIONS. PT HAS A 1:1 SITTER AT PT'S DOOR WITH CALL LIGHT IN REACH AND BED LOW AND LOCKED.
[2024-09-13] VITALS (13 sets, daily range): BP systolic 125–158; BP diastolic 76–102
[2024-09-13 03:46] LABS: Hematocrit 35.2 % (37.0-53.0); Hemoglobin 12.3 g/dL (13.5-17.5)
[2024-09-13 04:06] LABS: Albumin, Blood 2.7 g/dL (3.4-5.0); Anion Gap 8 mmol/L (3-11); Blood Urea Nitrogen 8 mg/dL (8-24); Bun/Creatinine Ratio 8.8 (12.0-20.0); CO2, Blood 27 mmol/L (21-32); Chloride, Blood 108 mmol/L (98-108); Glomerular Filtration Rate 111 (60-); Glucose, Blood 89 mg/dL (70-99); Phosphorus, Blood 3.2 mg/dL (2.5-4.9); Potassium, Blood 3.2 mmol/L (3.5-5.5); Salicylate <1.7 mg/dL (2.8-20.0); Sodium, Blood 140 mmol/L (136-145)
[2024-09-13] MEDS ORDERED: Potassium Chloride 10 Meq Tablet SA PO ONE (04:15)
--- NOTE | 2024-09-13 05:13 | NUR ---
SHIFT SUMM: PT HAS BEEN RELAXING IN BED THIS SHIFT AND WITH NO ACUTE CHANGES.PT CONTINUES TO HAVE SITTER AT DOOR FOR SI RISK ALTHOUGH PT CURRENTLY DENYING SI. PT IS A&OX4 AND IS ABLE TO MAKE NEEDS KNOWN.PT IS STILL WEAK BUT ABLE TO USE THE URINAL IND AT BEDSIDE. PT SPO2 HAS MAINTAINED >92%. HR IS IN THE 90'S AND SBP 130-150'S.PT HAS PATENT RAC IV AND R NECK TRIALYSIS. PT HAS TOLERATED PO INTAKE WELL THIS SHIFT, DIET ORDER PLACED FOR PT THIS SHIFT. PT RECIEVED POTASSIUM REPLACEMENT (SEE EMAR). PT REPORTS READY TO GO HOME AND FEELS BETTER. DR. FREEMAN AT BEDSIDE THIS AM TO ROUND, PER DR. FREEMAN TRIALYSIS CATH OKAY TO BE REMOVED AND FOLLOW UP RECCOMENDATION AT HIS OFFICE IN ONE WEEK. PT HAS CALL LIGHT IN REACH AND BED LOW AND LOCKED.
--- NOTE | 2024-09-13 10:40 | NUR ---
CALL TO DR LEAHY TO INQUIRE FOR ASSESSMENT TIME TODAY. PLAN FOR ASSESSMENT SOMETIME THIS AFTERNOON PER DR LEAHY. NOTIFIED PT TRANSFER ORDERS PLACED FOR MEDSURG AND THAT PT NO LONGER ON A MEDICAL HOLD.
[2024-09-13 12:39] LABS: Albumin, Blood 2.7 g/dL (3.4-5.0); Anion Gap 9 mmol/L (3-11); Blood Urea Nitrogen 9 mg/dL (8-24); Bun/Creatinine Ratio 11.2 (12.0-20.0); CO2, Blood 23 mmol/L (21-32); Calcium, Blood 8.3 mg/dL (8.5-10.1); Chloride, Blood 110 mmol/L (98-108); Glomerular Filtration Rate 115 (60-); Glucose, Blood 97 mg/dL (70-99); Magnesium, Blood 2.3 mg/dL (1.6-2.4); Phosphorus, Blood 3.3 mg/dL (2.5-4.9); Potassium, Blood 3.2 mmol/L (3.5-5.5); Sodium, Blood 139 mmol/L (136-145)
[2024-09-13] MEDS ORDERED: Potassium Chloride 20 MEQ TabCR PO ONE (13:15)
[2024-09-13] MEDS ORDERED: LORazepam 1 MG Tab PO ONE (14:30)
--- NOTE | 2024-09-13 15:37 | NUR ---
PHARMACIST AT POISON CONTROL CALLED. PT IS NOW CLEARED FROM TOXICOLOGY MONITORING WITH POISON CONTROL HE STATES THEY WILL NOW DEFER TO MEDICAL TEAM FOR MEDICAL CLEARANCE. HE DID RECOMMEND A REFERRAL BE PLACED FOR TOXICOLOGY FOLLOW UP WITH THE TOXICOLOGY CLINIC HE QUALIFIES FOR FOLLOW UP CARE BASED ON THE SEVERITY OF THIS CASE. FAX RECIEVED WITH INFORMATION FOR [facility]. PHONE [phone]. INCLUDE SOURCE OF EXPOSURE/POISONING/TOXICITY. REFERRALS CAN BE FAXED TP [phone]. PAPERWORK PLACED IN PT CHART WITH PT ID STICKER ATTACHED.
--- NOTE | 2024-09-13 15:55 | NUR ---
SHIFT SUMMARY NEURO: PATIENT ALERT AND ORIENTED X 4. ABLE TO MAKE HIS NEEDS KNOWN. MOVES ALL EXTREMITITES WELL. DECLINED TO GO FOR A WALK ABOUT THE UNIT TODAY. SOFT VOICE WITH SHORT 1-5 WORD VERBAL REPLIES. HE HAS HAD SOME RESTLESS LEGS HE SAYS WITH BLE INTERMITTENT QUICK MOVMENTS. AFFECT IS BLUNTED. DOES NOT MAKE EYE CONTACT. DENIED ANY VISUAL OR AUDIOLOGICAL HALLUCINATIONS. CARDIAC: VSS. SR-STACH SBP 110-140S, HR 90-110S. PULMONARY: CLEAR TO AUSCULATION GI: ABDOMEN IS SOFT/NON TENDER. APPETITE IMPROVING THROUGH OUT THE DAY. DENIES ANY NAUSEA. LAST BM 09/12/24 : URINE YELLOW, USING URINAL AND TOILET IN ROOM. SKIN: HEALING SCRATCHES TO BACK AND SCABS TO BILATERAL FEET. MOBILITY: INDEPENDENT SBA. HIGH SUICIDE RISK. 1:1 SITTER DUE TO RISK FOR SELF HARM. TRIALYSIS CATH REMOVED THIS AM. FAMILY INTO VISIT TODAY. POISON CONTROL CLEARED FROM FURTHER TOXICOLOGY MONITORING. DR. LEAHY INTO ASSESS THIS AFTERNOON, SEE NEW ORDERS. PLAN TO ADMIT TO U SOON PT IS MEDICALLY STABLE FOR TRANSFER. CALL TO DR SPEARS. DR DUDLEY COVERING TO NOTIFY.
[2024-09-13] MEDS ORDERED: LORazepam 1 MG Tab PO PRN (18:50)
--- NOTE | 2024-09-13 19:31 | NUR ---
Assessment and assumed Care Family present at bedside , visiting with patient. Patient awake alert and orientated . Family went home . SI assessment completed with only staff in room. Answering questions appropriately denies SI at this time. Denies pain , moving independently , sitter at bedside. Lungs sounds clear, heart rate SR in 80s , BP stable , PIV present in R AC SL flushed without diffuculty . No edema noted. Bowl tones present Denies n/v Cooperative with care.
[2024-09-13] MEDS ORDERED: OLANZapine 5 MG Tab PO SCH (21:00)
[2024-09-14 03:53] VITALS: BP 126/76
[2024-09-14 04:01] LABS: Hematocrit 36.9 % (37.0-53.0); Hemoglobin 13.2 g/dL (13.5-17.5)
[2024-09-14 04:17] LABS: Albumin, Blood 2.8 g/dL (3.4-5.0); Albumin/Globulin Ratio 0.9 (0.8-1.8); Bilirubin, Direct 0.2 mg/dL (0.0-0.3); Bilirubin, Indirect 0.3 mg/dL (0.1-0.7); Bilirubin, Total 0.5 mg/dL (0.1-1.0); Calcium, Blood 8.6 mg/dL (8.5-10.1); Creatinine, Blood 0.78 mg/dL (0.60-1.20); Globulin, Blood 3.1 g/dL (2.2-4.0); Magnesium, Blood 2.2 mg/dL (1.6-2.4); Potassium, Blood 3.4 mmol/L (3.5-5.5); Total Protein, Blood 5.9 g/dL (6.4-8.2)
[2024-09-14] MEDS ORDERED: Potassium Chloride 10 Meq Tablet SA PO ONE (04:45)
--- NOTE | 2024-09-14 05:58 | NUR ---
Shift Summary Pt slept through the night , vocalize no compliants, denies SI , sitter at bedside . VSS possible discharge to [facility] today. Report to oncoming nurse.
[2024-09-14 07:31] VITALS: BP 135/90
[2024-09-14] MEDS ORDERED: OLAN5A MM (09:03)
[2024-09-14] MEDS ORDERED: Ativan1 MG PO (09:03)
[2024-09-14] MEDS ORDERED: KLOR-CON 1010 ME1 PO (09:08)
--- NOTE | 2024-09-14 10:06 | NUR ---
SHIFT SUMMARY PATIENT ALERT AND ORIENTED X4. ABLE TO MAKE HIS NEEDS KNOWN. 1:1 SITTER AT BEDSIDE. DENIES SI/HI VSS. SINUS RHYTHM. VOIDED AT TOILET/URINAL. LAST BM 09/12 NORMOACTIVE BOWEL TONES. MOBILITY: INDEPENDENT. REGULAR DIET. FAMILY IN TO VISIT THIS MORNING. DISCHARGE COMPLETED AND REVIEWED WITH PT. PT TRANSFERRING TO [facility]. REPORT GIVEN TO [facility]. PLAN TO TRANSFER PT IN 20-30MIN.
== END 2024-09-14 10:47 | DRG 917 ==
LOC: ER 11:24 → ERHOLD 12:51 → ICUE 12:51
PROVIDERS: Emergency Medicine; Family Medicine; Internal Medicine; Internal Medicine Critical Care Medicine; Internal Medicine Nephrology; Student in an Organized Health Care Education/Training Program; ADMIT Hospitalist
PROC: 5A1945Z Respiratory Ventilation, 24-96 Consecutive Hours (ICD-10-PCS; principal; 2024-09-10)
PROC: 0BH17EZ Insertion of Endotracheal Airway into Trachea, Via Natural or Artificial Opening (ICD-10-PCS; principal; 2024-09-10)
PROC: 5A1D70Z Performance of Urinary Filtration, Intermittent, Less than 6 Hours Per Day (ICD-10-PCS; 2024-09-11)
DX: T39.012A Poisoning by aspirin, intentional self-harm, initial encounter (principal); G92.8 Other toxic encephalopathy; J96.01 Acute respiratory failure with hypoxia; E87.20 Acidosis, unspecified; E87.3 Alkalosis; F20.9 Schizophrenia, unspecified; F32.A Depression, unspecified; R74.01 Elevation of levels of liver transaminase levels; F10.10 Alcohol abuse, uncomplicated; R45.1 Restlessness and agitation; I95.9 Hypotension, unspecified; R00.0 Tachycardia, unspecified; E87.6 Hypokalemia; E86.9 Volume depletion, unspecified; E83.39 Other disorders of phosphorus metabolism; E83.42 Hypomagnesemia; E88.09 Other disorders of plasma-protein metabolism, not elsewhere classified; D64.9 Anemia, unspecified; T14.91XA Suicide attempt, initial encounter; R31.29 Other microscopic hematuria; R80.9 Proteinuria, unspecified
CPT/HCPCS: 0241U; 31500; 31720; 36415; 36556; 51702; 71045; 80048; 80053; 80069; 80320; 81001; 81003; 82040; 82248; 82330; 82803; 82947; 83735; 84100; 84132; 85014; 85018; 85025; 86592; 86704; 87340; 93005; 93010; 94002; 94003; 94762; 96374; 99285-25; A9270; C1752; G0480; J0612; J1650; J2060; J2250; J2470; J2704; J3010; J3411; J3475; J3480; J7030; J7050; J7060; J7070; J7120; J7799

== ENCOUNTER 2024-09-14 08:22 | Inpatient (IN) | payer OTHER ==
[~2024-09-14] VITALS: Ht 182.9 cm; Wt 130.9 kg
[~2024-09-14 08:22] MED LIST: Lithium Carbon450 MG PO; PALIPERIDONE PO
[2024-09-14] MEDS ORDERED: Ativan1 MG PO (09:03)
[2024-09-14] MEDS ORDERED: OLAN5A MM (09:03)
[2024-09-14] MEDS ORDERED: KLOR-CON 1010 ME1 PO (09:08)
[2024-09-14 10:58] VITALS: BP 119/94
[2024-09-14 11:20] VITALS: BP 119/94
[2024-09-14] MEDS ORDERED: Acetaminophen 325 MG TABLET PO PRN (11:25)
[2024-09-14] MEDS ORDERED: Aluminum Hydroxide 320MG/5ML 473 ML PO PRN (11:25)
[2024-09-14] MEDS ORDERED: LORazepam 2 MG Tab PO PRN (11:25)
[2024-09-14] MEDS ORDERED: Melatonin 3 MG Tab PO PRN (11:25)
[2024-09-14] MEDS ORDERED: Calcium Carbonate 500 MG Tab Chew PO PRN (11:25)
[2024-09-14] MEDS ORDERED: TraZODone HCl 50 MG Tab PO PRN (11:30)
[2024-09-14] MEDS ORDERED: Polyethylene Glycol 3350 17 gm PO PRN (11:30)
[2024-09-14] MEDS ORDERED: Ondansetron 4 MG SoluTab MM PRN (11:30)
[2024-09-14] MEDS ORDERED: Ibuprofen 600 MG Tab PO PRN (11:30)
[2024-09-14] MEDS ORDERED: OLANZapine ODT 10 MG Tab MM PRN (11:30)
[2024-09-14] MEDS ORDERED: OLANZapine 10 MG Vial IM PRN (11:35)
--- NOTE | 2024-09-14 12:50 | NUR ---
ADMISSION NOTE PT ARRIVES TO [facility] FROM [facility] ED CRISIS UNIT, ESCORTED BY FLORENCE DAVILA AND . PT IS A&O X4, AMBULATORY, AND COOPERATIVE WITH INTAKE PROCESS. SKIN CHECK PERFORMED BY THIS RN AND XOCHILT MIRELES. PT HAS MULTIPLE OLD HEALING SCRATCHES TO HIS BACK FROM WHICH HE STATES IS FROM "WHEN I FELL IN THE EXAM ROOM." HE ALSO PRESENTS WITH TWO CIRCULAR SCABBED WOUNDS TO PEDAL R FOOT AND 2 TOO R FOOT MIDDLE TWO OF WHICH HE DOES NOT RECALL HOW HE GOT THEM. PT DRESSED IN [facility] SCRUBS. DURING ASSESSMENT PT STATES HE TOOK ABOUT 400 ASPIRIN 325 MG TABS BECAUSE, "I DIDN'T WANT TO HAVE TO MOVE BACK HOME AND I FELT LIKE GOD DIDN'T WANT ME." AFTER TAKING THE TABS PT STATES HE CALLED HIS MOTHER AND THE SUICIDE HOTLINE. HE WAS THEN BROUGHT TO [facility] ED FROM WHICH HE ENDED UP IN INTUBATED IN THE ICU. HE WAS EXTUBATED 09/12/24 AND HAS AGREED TO BE A VOLUNTARY ADMISSION AT THIS POINT. HE IS SLIGHTLY ANXIOUS DURING INTAKE AND CONINUOUSLY MOVES FEET AND HANDS. SPEECH IS DELAYED AT TIMES AND VOLUME INCREASES AND DECREASES WITH FREQUENT PAUSES PRIOR TO PROVIDING ANSWERS. HE DENIES HAVING SI/HI AT THIS TIME AND DENIES ANY AVH. HE DOES STATE HE HAD A RECENT BREAK UP WITH "[employer]." STATES HE HAS BEEN LIVING ALONE IN EITHER A HOTEL ROOM OR AT THE [facility]. HE DENIES SUBSTANCE ABUSE AND STATES HE STARTED DRINKING ETOH ABOUT 2 MONTHS AGO, AND HE WAS ETOH+ ON ED ARRIVAL. HE IS A WITH A HX OF PTSD, DMM, AND SCHIZOPHRENIA. HE USUALLY TAKES LITHIUM 900 MG QHS AND PALIPERIDONE 9 MG, BUT HAS NOT HAD THEM SINCE ADMIT. DURING ICU HE RECIEVED DIALYSIS X3-4 AND PRESENTS TO [facility] WITH A SCRATCHY THROAT THAT HE CLEARS FREQUENTLY. HE HAS A FLAT BLUNTED AFFECT AND NEAR THE END OF THE ASSESSMENT HE APPEARS TO GET MORE ANXIOUS AND REQUESTED ATIVAN. PT WAS GIVEN A TOUR OF THE UNIT AND HIS ROOM. HE WAS GIVEN LUNCH IN THE DINNING ROOM AND THEN WENT BACK TO HIS ROOM AND LAY IN HIS BED, STATING HE WASN'T FEELING VERY WELL BUT WILL NOT SPECIFY WHAT IS NOT FEELING WELL. HE WAS MEDICATED WITH ATIVAN FOR ANXIETY. HE INFORMS THIS RN THAT HE HAS A COURT DATE ON 09/19/24 R/T HIS MENTAL HEALTH AND HE RECIEVES CARE FROM [facility], [facility], AND HIS FUR DRY CLEANER HAND IS BINH DENNISON. HE STATES HE USES CIGARETTES BUT HAS NOT SINCE HE CAME TO [facility] AND REFUSED ANY NICOTINE REPLACEMENT OR CEASATION TEACHING.
--- NOTE | 2024-09-14 17:47 | NUR ---
SHIFT NOTE PT UP FOR DINNER MEAL AND AFTER LUNCH SNACK. OTHER HURST HE REMAINED IN HIS ROOM AFTER HIS INTAKE ASSESSMENT. SEE INTAKE NOTES. PT STATES HE IS NOT FEELING "WELL" BUT IS NOT ABLE TO STATES WHAT IS NOT WELL. HE STATES HE IS JUST TIRED AND DID NOT GET MUCH SLEEP THE LAST COUPLE OF NIGHTS. HE HAS BEEN COMPLIANT WITH STAFF AND CALM WITH PEERS.
[2024-09-14] MEDS ORDERED: RisperiDONE 1 MG Tab PO SCH (21:00)
[2024-09-14 21:22] VITALS: BP 85/56
--- NOTE | 2024-09-15 05:31 | NUR ---
SHIFT SUMMARY NO ACUTE EVENTS THIS EVENING. PT DENIES SI, HI, AVTH. PT PLEASANT AND COOPERATIVE. DID NOT WANT TO COME OUT FOR SNACK AND WANTED TO SLEEP. CAME OUT THIS AM ASKING FOR SNACK AND WAS INFORMED ABOUT SNACKTIMES. PT SAID "OK" AND WENT BACK TO BED.
[2024-09-15 07:20] LABS: CHOL/HDL RATIO 3.2; Cholesterol 135 mg/dL (50-200); HDL Cholesterol 42 mg/dL (>39); LDL/HDL RATIO 1.7; Low Density Lipoprotein Chol 70 mg/dL (0-110); Triglycerides 116 mg/dL (30-140); Very Low Density Lipoprot Chol 23 mg/dL (6-28)
[2024-09-15 08:13] VITALS: BP 121/92
[2024-09-15] MEDS ORDERED: Thiamine HCl 100 MG Tab PO SCH (09:00)
[2024-09-15] MEDS ORDERED: Multivitamins 1 Tab PO SCH (09:00)
[2024-09-15] MEDS ORDERED: Folic Acid 1 MG TAB PO SCH (09:00)
--- NOTE | 2024-09-15 17:18 | NUR ---
SHIFT NOTE PT CALM AND COOPERATIVE WITH ALL MEDICATIONS THIS SHIFT. HE HAD C/O ANXIETY X2 TODAY AND WAS MEDICATED WITH ATIVAN BOTH TIMES. NOLBES DID ATTEND A COUPLE OF GROUPS TODAY, BUT DID NOT STAY THROUGHOUT THEIR ENTIRETY. HE MADE LITTLE SOCIAL CONTACT WITH PEERS AND MINIMAL TIME IN THE [place]. HE DID COME OUT OF HIS ROOM FOR ABOUT 20 MIN IN THE AFTERNOON AND AMBULATED THE HALLWAYS. PT DENIES ANY HI/SI/AVH, BUT HE DID APPEAR TO BE LAUGHING TO HIMSELF OCCASSIONALLY WHEN AMBULATING THE HALLWAYS.
[2024-09-15 19:57] VITALS: BP 114/86
--- NOTE | 2024-09-16 05:17 | NUR ---
SHIFT SUMMARY: PT A/O X4. PT IN BED AT THE BEGINNING OF THIS SHIFT. INTERVIEWED AND DENIES SI, HI AND AVH. PLEASANT AND COOPERATIVE. PT UP FOR SNACK TIME. MED COMPLIANT. BACK TO BED AFTER SNACK. SLEEPING WELL . WILL CONTINUE TO MONITOR FOR SAFETY Q 15 MINUTE CHECKS.
[2024-09-16 09:49] LABS: Albumin, Blood 3.3 g/dL (3.4-5.0); Albumin/Globulin Ratio 0.9 (0.8-1.8); Bilirubin, Total 0.4 mg/dL (0.1-1.0); Bun/Creatinine Ratio 21.9 (12.0-20.0); Calcium, Blood 8.8 mg/dL (8.5-10.1); Creatinine, Blood 0.87 mg/dL (0.60-1.20); Globulin, Blood 3.7 g/dL (2.2-4.0); Potassium, Blood 3.7 mmol/L (3.5-5.5)
--- NOTE | 2024-09-16 17:53 | NUR ---
PATIENT HAS A HISTORY OF SCHIZOPHRENIA. IT APPEARS THAT HE IS RESPONDING TO INTERNAL STIMULI, WHISPERING TO SELF. PATIENT HAS SOFT VOICE, LOW VOLUME. HE DENIES HALLUCINATIONS. HE EXPRESSED CONCERN OVER HIS ROOM MATE SAYING "DEVILISH" THINGS TO HIM. HE'D LIKE TO CHANGE ROOMS WHEN POSSIBLE. PATIENT TOOK ALL OF HIS SCHEDULED MEDS AND DID REQUEST A PRN FOR ANXIETY AROUND 545PM. HE WAS GIVEN A ZYPREXA 10 MG SL. TAB. PATIENT DENIES SUICIDAL IDEATION AND STATES HE DOES NOT WANT TO HARM OTHERS. PATIENT DID PARTICIPATE IN GROUPS TODAY AND APPEARS TO ALSO HAVE A GOOD APPETITE.
[2024-09-16 19:20] VITALS: BP 124/89
[2024-09-16] MEDS ORDERED: RisperiDONE 1 MG Tab PO SCH (21:00)
--- NOTE | 2024-09-16 21:21 | NUR ---
MASS SCORE: PATIENT HAS BEEN INTERRUPTED FOR MORE THAN 24 HOURS EVERY TIME HE TRIES TO REST OR SLEEP, BY HIS ROOMMATE. HE IS A PATIENT AND QUIET FELLOW, BUT IS CLEARLY DISTRESSED EVIDENCED BY PACING RESTLESSLY AND VOICING HIS FRUSTRATIONS. HE WAS GIVEN ZYPREXA TO HELP, AND USED COPING SKILLS SUCH COMMUNICATING WITH STAFF APPROPRIATELY AND PACING. HE SPENT TIME IN THE SENSORY ROOM AFTER TAKING THE MEDICATION. CONTINUING TO MONITOR.
--- NOTE | 2024-09-17 05:04 | NUR ---
SHIFT SUMMARY: PT IN BED AT THE BEGING OF THE SHIFT. DENIES SI, HI, AND AVH. PT SAYS THAT HE WAS TIRED HE DID NOT SLEEP WELL ROOMMATE WAS RESTLESS THROUGH THE NIGHT. PT A/O X4. DECLINED SNACK OFFERED AT 1999. MED COMPLIANT. PT HAD HARD TIME SLEEPING TONIGHT ROOMMATE RESTLESS AND IN/OUT OF THE ROOM FREQUENTLY. GIVEN EAR PLUGS TO HELP WITH NOISE. PT DID PACE THE HALLS SOME BEFORE 2200. 2100 GIVEN ZYPREXA AND REPEATED TRAZODONE TO HELP WITH SLEEP. WILL CONTINUE TO MONITOR.
[2024-09-17 07:53] VITALS: BP 105/89
[2024-09-17 10:16] LABS: Albumin, Blood 3.2 g/dL (3.4-5.0); Albumin/Globulin Ratio 0.9 (0.8-1.8); Bilirubin, Total 0.5 mg/dL (0.1-1.0); Bun/Creatinine Ratio 20.1 (12.0-20.0); Calcium, Blood 8.7 mg/dL (8.5-10.1); Creatinine, Blood 0.95 mg/dL (0.60-1.20); Globulin, Blood 3.7 g/dL (2.2-4.0); Potassium, Blood 3.8 mmol/L (3.5-5.5); Total Protein, Blood 6.9 g/dL (6.4-8.2)
--- NOTE | 2024-09-17 12:04 | NUR ---
PATIENT REPORTS THAT HE IS FASTING. [facility] STAFF [facility] REPORTS THAT HE DID NOT EAT BREAKFAST OF LUNCH TODAY. DR. AGUIRRE IS AWARE THAT THE PATIENT DIDN'T EAT BREAKFAST. RISPERIDONE WAS JUST INCREASED TO 3MG. INTERNAL STIMULI MAY BE TO BLAME IF THE PATIENT IS AFRAID THAT FOOD IS POISONED.
--- NOTE | 2024-09-17 16:42 | NUR ---
SHIFT SUMMARY ASSUMED CARE OF PT AT 0900. PT HAS HAD A GOOD DAY, SLEPT OFF/ON THROUGHOUT DAY, PACED IN THE HALLWAY QUITE AWHILE WELL. HE IS NOT VERY ENGAGED WITH THE OTHER PATIENTS, KEEPS TO HIMSELF. PT REFUSED BKFT AND LUNCH AND DAY SNACKS. AFTER SPEAKING TO HIM REGARDING THIS, HE STATED "I JUST WANTED TO TRY FASTING FOR AWHILE". EDUCATED PT ON IMPORTANCE OF NUTRITION DURING HIS MENTAL HEALTH HEALING PROCESS, HE STATED UNDERSTANDING AND THAT HE WILL BE HAVING HIS DINNER TONIGHT. PT HAS DENIED SI/HI BUT ENDORSED INTERNAL STIMULI AND VERY LITTLE SLEEP LAST NIGHT. PT HAS RECEIVED Q15 MIN VISUAL SAFETY CHECKS THROUGHOUT THIS SHIFT.
--- NOTE | 2024-09-18 04:14 | NUR ---
SHIFT SUMMARY: PT A/O X4. DENIES SI, HI, AND AVH. PT IN BED AT THE BEGINNING OF SHIFT. EASILY AWAKENED TO DO INTERVIEW. STATED HIS ROOMMATE IS NOISEY AND HE CAN'T SLEEP WELL. AT THIS TIME ROOMMATE OUT OF THE ROOM. DENIES TO HAVE AH AT THIS TIME. GOT UP AND WALKED THE HALLS WHEN ROOMMATE LOUD. MED COMPLIANT. UP FOR 1999 SNACK. NO ISSUES AT THIS TIME. PT SLEEPING AT THIS TIME. WILL CONTINUE TO MONITOR.
[2024-09-18 08:17] VITALS: BP 107/81
--- NOTE | 2024-09-18 17:06 | NUR ---
SHIFT SUMMARY PT AxOx4. PLEASANT AND COOPERATIVE WITH CARE. PT DENIES SI/HI AND AVTH THIS AM. HE HAS BEEN FOLLOWING TREATMENT PLAN INCLUDING TAKING MEDICATIONS PRESCRIBED, ATTENDING ALL [place] THERAPY GROUPS AND MINGLING APPROPRIATELY WITH PEERS/STAFF. PT WAS MEDICATED x1 TODAY FOR ANXIETY WITH REPORTED RELIEF. PT IS EXPECTING TO DC TOMORROW. [facility] PT IS CURRENTLY IN DINING ROOM EATING DINNER WITH OTHERS. DENIES ANY NEEDS AT THIS TIME.
[2024-09-18 19:37] VITALS: BP 115/83
--- NOTE | 2024-09-19 05:20 | NUR ---
SHIFT SUMMARY NO ACUTE EVENTS OVERNIGHT. PT DENIES SI, HI, AVTH; WHEN ASKED ABOUT PT ENDORSING AUDITORY HALLUCINATIONS TO DOCTOR PER NOTE, PT STATED HE THOUGHT IT WAS A MEDICATION HE WAS BRIEFLY ON AND HASN'T HAD THEM FOR "A WHILE". PT PLEASANT AND COOPERATIVE, WAS IN DAY ROOM BEFORE SNACKTIME. UP SEVERAL TIMES TONIGHT D/T INABILITY TO FALL ASLEEP, PRN'S USED. PT DENIED ANXIOUSNESS, JUST STATED HE WASN'T TIRED.
[2024-09-19] MEDS ORDERED: FOLI1 PO (10:51)
[2024-09-19] MEDS ORDERED: MELA3 PO (10:51)
[2024-09-19] MEDS ORDERED: Hair, Skin & N1 EACH PO (10:52)
[2024-09-19] MEDS ORDERED: RISP3 PO (10:52)
[2024-09-19] MEDS ORDERED: TRAZ50 PO (10:53)
[2024-09-19] MEDS ORDERED: B-1100 M2 PO (10:53)
--- NOTE | 2024-09-19 12:18 | NUR ---
IMPORTANT DISCHARGE INFORMATION PATIENT TO BE DISCHARGED TODAY, 09/19/24. HE HAS MEDICAL SERVICES THROUGH THE [facility]. [phone]. THIS RN REACHED OUT TO DR. WOOD HIS PROVIDER AT THE [facility]. THEY WILL CALL PATIENT FOR FOLLOW UP APPOINTMENT. PHARMACY: [facility] EXT1 FAX =
--- NOTE | 2024-09-19 12:55 | NUR ---
DISCHARGE NOTE/SHIFT SUMMARY PT AxOx4. PLEASANT AND COOPERATIVE WITH CARE. PT DENIED SI/HI AND AVTH THIS AM. HE HAS BEEN FOLLOWING HIS TREATMENT PLAN INCLUDING TAKING MEDICATIONS PRESCRIBED, ATTENDING ALL [employer] THERAPY GROUPS AND MINGLING APPROPRIATELY WITH STAFF/ PEERS. PT IS DISCHARGING TODAY WHERE HE IS RETURNING TO A LOCAL HOTEL. PT WAS PROVIDED DC INSTRUCTIONS INCLUDING DC MED LIST, NEED TO REACH OUT TO [facility] TO SET UP FOLLOW UP APPOINTMENTS AND PATIENT EDUCATION ON DIAGNOSES AND MEDICATIONS. PT VERBALIZED UNDERSTANDING AND WAS SAFELY ESCORTED OUT WITH THIS RN. HIS SALES AND MARKETING DIRECTOR PICKED HIM UP AT APPROX 1300.
--- NOTE | 2024-09-19 12:59 | NUR ---
IMPORTANT DISCHARGE INFORMATION THE [facility] RETURNED MY CALL POST DISCHARGE. THEY WILL REACH OUT TO PANTERA AT TO SCHEDULE ALL HIS FOLLOW UP APPOINTMENTS INCLUDING NEPHROLOGY.
== END 2024-09-19 12:54 | disposition home or self-care (01) | DRG 885 ==
LOC: BHU 08:22
PROVIDERS: ADMIT Student in an Organized Health Care Education/Training Program
DX: F20.0 Paranoid schizophrenia (principal); G24.01 Drug induced subacute dyskinesia; F41.9 Anxiety disorder, unspecified; Z91.51 Personal history of suicidal behavior; Z79.899 Other long term (current) drug therapy
CPT/HCPCS: 36415; 80053; 80061; 83036; A9270

== ENCOUNTER 2024-09-27 19:00 | Inpatient (IN) | payer OTHER ==
[~2024-09-27] VITALS: Ht 188 cm; Wt 127.2 kg
[~2024-09-27 19:00] MED LIST changes: +Ativan1 MG PO; +B-1100 M2 PO; +FOLI1 PO; +Hair, Skin & N1 EACH PO; +KLOR-CON 1010 ME1 PO; +MELA3 PO; +OLAN5A MM; +RISP3 PO; +TRAZ50 PO
[2024-09-27] MEDS ORDERED: NS 1,000 ML IV SCH ×4 (19:15→22:00)
[2024-09-27 19:29] LABS: Chloride (POC) 103 mmol/L (98-108); Creatinine (POC) 0.9 mg/dL (0.8-1.3); Glucose (ISTAT POC) 114 mg/dL (70-99); Hemoglobin (POC) 14.3 g/dL (13.5-17.5); Sodium (POC) 138 mmol/L (135-148); Total CO2 (POC) 23 mmol/L (21-32)
[2024-09-27 19:29] LABS: BASOPHILS ABSOLUTE AUTO 0.08 K/mm3 (0.00-0.23); BASOPHILS PERCENT AUTO 1 % (0-2); EOSINOPHILS ABSOLUTE AUTO 0.17 K/mm3 (0.00-0.68); EOSINOPHILS PERCENT AUTO 2 % (0-6); Hematocrit 40.8 % (37.0-53.0); Hemoglobin 14.9 g/dL (13.5-17.5); IMMATURE GRAN ABSOLUTE AUTO 0.02 K/mm3 (0.00-0.10); IMMATURE GRAN PERCENT AUTO 0 % (0-1); LYMPHOCYTES ABSOLUTE AUTO 1.48 K/mm3 (0.84-5.20); LYMPHOCYTES PERCENT AUTO 19 % (21-46); MONOCYTES ABSOLUTE AUTO 0.53 K/mm3 (0.16-1.47); MONOCYTES PERCENT AUTO 7 % (4-13); Mean Corpuscular HGB 32.9 pg (26.0-34.0); Mean Corpuscular HGB Conc 36.5 g/dL (31.5-36.5); Mean Corpuscular Volume 90 fL (80-100); Mean Platelet Volume 10.8 fL (9.1-12.4); NEUTROPHILS ABSOLUTE AUTO 5.68 K/mm3 (1.96-9.15); NEUTROPHILS PERCENT AUTO 71 % (41-73); Platelet Count 279 K/mm3 (150-400); RDW Coefficient Variation 12.9 % (11.7-14.2); RDW Standard Deviation 42.2 fL (35.1-46.3); Red Blood Cell Count 4.53 M/mm3 (4.30-5.90); White Blood Cell Count 7.96 K/mm3 (4.00-11.30)
[2024-09-27] MEDS ORDERED: Sodium Polystyrene Sulfonate 15GM / 60ML BTL PO ONE (19:35)
[2024-09-27 20:01] LABS: Ethanol (Alcohol), Blood, Med <3 mg/dL; Free Thyroxine 1.18 ng/dL (0.70-1.60); Magnesium, Blood 2.2 mg/dL (1.6-2.4); Salicylate <1.7 mg/dL (2.8-20.0)
[2024-09-27 20:03] LABS: Alanine Aminotransfer (ALT/SGP 238 U/L (12-78); Albumin/Globulin Ratio 1.1 (0.8-1.8); Alk Phos 69 U/L (50-136); Anion Gap 9 mmol/L (3-11); Aspartate Aminotrans (AST/SGOT 209 U/L (12-37); Bilirubin, Total 1.2 mg/dL (0.1-1.0); Blood Urea Nitrogen 12 mg/dL (8-24); Bun/Creatinine Ratio 15.5 (12.0-20.0); CO2, Blood 24 mmol/L (21-32); Calcium, Blood 8.8 mg/dL (8.5-10.1); Chloride, Blood 105 mmol/L (98-108); Creatinine, Blood 0.77 mg/dL (0.60-1.20); Globulin, Blood 3.8 g/dL (2.2-4.0); Glomerular Filtration Rate 117 (60-); Glucose, Blood 105 mg/dL (70-99); Potassium, Blood 2.9 mmol/L (3.5-5.5); Sodium, Blood 135 mmol/L (136-145); Total Protein, Blood 7.8 g/dL (6.4-8.2)
[2024-09-27 20:05] LABS: Acetaminophen, Random <2.0 ug/mL (10.0-30.0)
[2024-09-27] MEDS ORDERED: Potassium Chl 20MEQ/Water100ML 200 ML IV SCH (20:20)
[2024-09-27 20:33] LABS: Lithium 1.81 mmol/L (0.60-1.20)
[2024-09-27 20:38] LABS: Source, Urine Clean Catch
[2024-09-27 20:43] LABS: Appearance, Urine Clear (Clear); Bilirubin, Urine Neg (Neg); Blood, Urine Neg (Neg); Color, Urine Yellow (P-Yellow); Glucose Qualitative, Urine Neg (Neg); Ketones, Urine 1+ (Neg); Leukocyte Esterase, Urine Neg (Neg); Nitrite, Urine Neg (Neg); Protein, Urine 1+ (Neg); Urobilinogen, Urine NORM (Normal)
[2024-09-27] MEDS ORDERED: Potassium Chloride 40 MEQ in NS 250 ML IV ONE (20:55)
[2024-09-27 20:57] LABS: U Amphetamine Screen Not Detected; U Barbituate Screen Not Detected; U Benzodiazapine Screen Not Detected; U Buprenorphine Screen Not Detected; U Cannabinoids Screen Not Detected; U Cocaine Screen Not Detected; U Methadone Screen Not Detected; U Methamphetamine Screen Not Detected; U Opiates Screen Not Detected; U Phencyclidine Screen Not Detected
[2024-09-27 20:58] LABS: U Oxycodone Screen Not Detected
[2024-09-27 21:45] VITALS: BP 126/74
[2024-09-27 22:15] VITALS: BP 152/101
[2024-09-27 22:32] LABS: Bun/Creatinine Ratio 13.9 (12.0-20.0); Calcium, Blood 8.2 mg/dL (8.5-10.1); Creatinine, Blood 0.79 mg/dL (0.60-1.20); Potassium, Blood 3.5 mmol/L (3.5-5.5)
[2024-09-27 23:00] VITALS: BP 123/99
[2024-09-27] MEDS ORDERED: LORazepam 1 MG Tab PO PRN (23:35)
[2024-09-28] VITALS (8 sets, daily range): BP systolic 122–147; BP diastolic 82–95
[2024-09-28 02:03] LABS: Bun/Creatinine Ratio 9.9 (12.0-20.0); Calcium, Blood 8.3 mg/dL (8.5-10.1); Creatinine, Blood 0.91 mg/dL (0.60-1.20); Potassium, Blood 3.3 mmol/L (3.5-5.5)
[2024-09-28 02:32] LABS: Lithium 2.08 mmol/L (0.60-1.20)
[2024-09-28] MEDS ORDERED: LORazepam 1 MG Tab PO PRN ×3 (02:50→11:00)
--- NOTE | 2024-09-28 06:31 | NUR ---
SHIFT SUMMARY PT LYING IN BED SLEEPING, AWAKES TO VOICE AND IS ALERT AND ORIENTED TO ALL. PT ADMITS TO BEING ANXIOUS AGAIN AND IS MEDICATED PER MAR. CIWA 4. PT SAID HE WAS IN W/D EARLIER IN EVENING BUT ETHYL ETOH <3 ON ADMISSION. AFEBRILE. SINUS RHYTHM IN THE 70S WITH STABLE BP, NO INCREASED WORK OF BREATHING AND SYMMETRIC LUNG EXPANSION, SAT 97% ON RA. NO CHEST PAIN/PRESSURE, SOB. NO AB PAIN. 2 EPISODES OF LOOSE/LIQUID STOOL DURING SHIFT- PT ADMITS TO 3 DAYS OF DIARRHEA. PT STEADY ON FT. 1 PERSON SBA. SITTER IN PLACE FOR 2 MD HOLD. BEDSIDE REPORT GIVEN TO ONCOMING RN.
[2024-09-28] MEDS ORDERED: Potassium Chl 20MEQ/Water100ML 100 ML IV STA (06:44)
[2024-09-28] MEDS ORDERED: Folic Acid 1 MG TAB PO SCH (09:00)
[2024-09-28] MEDS ORDERED: Thiamine HCl 100 MG Tab PO SCH (09:00)
[2024-09-28] MEDS ORDERED: Enoxaparin 40 MG/0.4 ML SYR SC SCH (09:00)
[2024-09-28 09:35] LABS: Lithium 1.43 mmol/L (0.60-1.20)
[2024-09-28 09:38] LABS: Source, Urine Voided
[2024-09-28 09:39] LABS: Bun/Creatinine Ratio 8.8 (12.0-20.0); Calcium, Blood 8.1 mg/dL (8.5-10.1); Creatinine, Blood 0.91 mg/dL (0.60-1.20); Potassium, Blood 3.2 mmol/L (3.5-5.5); Thyroid Stimulating Hormone 2.15 uIU/mL (0.360-4.800)
[2024-09-28 09:40] LABS: Appearance, Urine Clear (Clear); Bilirubin, Urine Neg (Neg); Blood, Urine Neg (Neg); Color, Urine Yellow (P-Yellow); Glucose Qualitative, Urine Neg (Neg); Ketones, Urine 1+ (Neg); Leukocyte Esterase, Urine Neg (Neg); Nitrite, Urine Neg (Neg); Protein, Urine Neg (Neg); Urobilinogen, Urine NORM (Normal)
[2024-09-28] MEDS ORDERED: Potassium Chloride 20 MEQ TabCR PO ONE (11:00)
--- NOTE | 2024-09-28 11:11 | NUR ---
"Spiritual Care | Pt. Request Pt. is awake and welcomes my visit. Pt. had made a request for a bible, so this photo graphics librarian brought him one. Facilitated a short update. Pt. verbalized about his time in the [facility] and that he felt it was good for him. Pt. displayed evidence of simple responses but did not seem appropriate for deeper life review. Pryaed with the Pt. and will remain available to him."
[2024-09-28 12:08] LABS: Bun/Creatinine Ratio 9.6 (12.0-20.0); Calcium, Blood 8.5 mg/dL (8.5-10.1); Creatinine, Blood 0.84 mg/dL (0.60-1.20); Potassium, Blood 3.1 mmol/L (3.5-5.5)
[2024-09-28] MEDS ORDERED: NS 1,000 ML IV SCH ×2 (12:25→12:35)
[2024-09-28 13:03] LABS: Lithium 1.12 mmol/L (0.60-1.20)
[2024-09-28] MEDS ORDERED: Ketorolac Tromethamine 15mg Vial IV PRN (16:00)
[2024-09-28 17:10] LABS: Bun/Creatinine Ratio 10.2 (12.0-20.0); Calcium, Blood 8.9 mg/dL (8.5-10.1); Creatinine, Blood 0.98 mg/dL (0.60-1.20); Potassium, Blood 3.6 mmol/L (3.5-5.5)
--- NOTE | 2024-09-28 18:11 | NUR ---
Summary. Pt rested in bed this shift. A&O x4, very pleasant. Dr. Sands in to see pt today. Poison Control closed case on patient this evening. No acute events today, prn anti-anxiety meds used, see emar. See chart for further details.
--- NOTE | 2024-09-28 20:45 | NUR ---
ASSUMPTION OF CARE/TRANSFER TO 228: ASSUMED CARE OF PT AT 1900; REPORT RECIEVED FROM ABIMBOLA MIRELES. PT A&O X 4, COOPERATIVE WITH CARE AND REPORTING 10/10 ANXIETY AT START OF SHIFT. CIWA SCORE IS 13 AT START OF SHIFT; PT MEDICATED WITH 1 MG ATIVAN PER EMAR. PT REPORTS GOOD EFFECT. PT MAEW, INDEPENDENT BED MOBILITY AND CAN AMBULATE TO TOILET WELL. ON RA, LUNGS CLEAR T/O AND DENIES SOB. SR ON MONITOR, HR 70'S, AND SBP 130'S; DENIES CHEST PAIN/PRESSURE. SKIN INTACT, SOME HEALING BILISTERS ON THE TOP OF THE R. FOOT NOTED. PIV TO RAC THAT IS PATENT AND SALINE LOCKED. PT IS BEING TRANSFERRED TO SURG 228; REPORT GIVEN KEVEN. ALL OF PATIENTS BELONGINGS TRANSFERRED TO NEW ROOM. PT LEFT THE UNIT AT 2044.
[2024-09-29 04:47] VITALS: BP 131/99
--- NOTE | 2024-09-29 05:22 | NUR ---
NOC SUMMARY- PT ARRIVED TO ROOM IN NO DISTRESS. PREPARER SAMPLES AND REPAIRS IS IN ATTANDANCE. PT TX FOR ANXIETY PER JUL. PT HAS BEEN RESTING COMFORTABLY AND IN NO DISTRESS. PT VOIDING AND TOLERATING PO. CALL LIGHT IN REACH.
[2024-09-29 06:28] LABS: BASOPHILS ABSOLUTE AUTO 0.08 K/mm3 (0.00-0.23); BASOPHILS PERCENT AUTO 1 % (0-2); EOSINOPHILS PERCENT AUTO 6 % (0-6); Hematocrit 40.3 % (37.0-53.0); Hemoglobin 14.2 g/dL (13.5-17.5); IMMATURE GRAN ABSOLUTE AUTO 0.03 K/mm3 (0.00-0.10); IMMATURE GRAN PERCENT AUTO 0 % (0-1); LYMPHOCYTES ABSOLUTE AUTO 2.14 K/mm3 (0.84-5.20); LYMPHOCYTES PERCENT AUTO 25 % (21-46); MONOCYTES ABSOLUTE AUTO 0.63 K/mm3 (0.16-1.47); MONOCYTES PERCENT AUTO 7 % (4-13); Mean Corpuscular HGB 33.5 pg (26.0-34.0); Mean Corpuscular HGB Conc 35.2 g/dL (31.5-36.5); NEUTROPHILS ABSOLUTE AUTO 5.34 K/mm3 (1.96-9.15); NEUTROPHILS PERCENT AUTO 61 % (41-73); Platelet Count 215 K/mm3 (150-400); RDW Coefficient Variation 13.5 % (11.7-14.2); RDW Standard Deviation 45.8 fL (35.1-46.3); Red Blood Cell Count 4.24 M/mm3 (4.30-5.90); White Blood Cell Count 8.72 K/mm3 (4.00-11.30)
[2024-09-29 06:29] LABS: Mean Corpuscular Volume 95 fL (80-100)
[2024-09-29 06:54] LABS: Albumin, Blood 3.2 g/dL (3.4-5.0); Albumin/Globulin Ratio 0.9 (0.8-1.8); Bilirubin, Total 0.9 mg/dL (0.1-1.0); Bun/Creatinine Ratio 10.7 (12.0-20.0); Calcium, Blood 9.2 mg/dL (8.5-10.1); Creatinine, Blood 0.84 mg/dL (0.60-1.20); Globulin, Blood 3.5 g/dL (2.2-4.0); Phosphorus, Blood 4.1 mg/dL (2.5-4.9); Potassium, Blood 3.5 mmol/L (3.5-5.5); Total Protein, Blood 6.7 g/dL (6.4-8.2)
[2024-09-29 06:57] LABS: Lithium 0.69 mmol/L (0.60-1.20)
[2024-09-29 07:49] VITALS: BP 132/89
--- NOTE | 2024-09-29 09:46 | NUR ---
ASSUMPTION OF CARE: ASSUMED CARE OF PATIENT. ASLEEP DURING SHIFT CHANGE REPORT. LYING IN BED ON LEFT SIDE. BREATHING EVEN AND UNLABORED ON ROOM AIR. TELE SINUS @ 65bpm. BED IN LOWEST POSITION. CALL LIGHT WITHIN REACH. NO ACUTE NEEDS.
[2024-09-29] MEDS ORDERED: Ativan1 MG PO (15:10)
[2024-09-29 15:35] VITALS: BP 132/89
--- NOTE | 2024-09-29 17:50 | NUR ---
END OF SHIFT SUMMARY: A&OX4. PLEASANT AND COOPERATIVE WITH CARE. CALLS APPROPRIATELY AND IS ABLE TO ADVOCATE NEEDS. CONTINENT OF BOWEL AND BLADDER. TAKES MEDS WHOLE WITH FLUIDS. AMBULATES INDEPENDENTLY. ALL CONTROLLED SUBSTANCES WERE GIVEN BY PRIMARY RN. 1:1 SITTER. BED IN LOWEST POSITION. CALL LIGHT WITHIN REACH. REPORT GIVEN TO ONCOMING NURSE.
--- NOTE | 2024-09-29 17:55 | NUR ---
PATIENT DISCHARGED TO [facility] @ 1745. LEFT UNIT ESCORTED BY [facility] FROM [facility] AND MEMBER OF SECURITY AFTER IV REMOVED BY SN LAM.
--- NOTE | 2024-09-29 18:03 | NUR ---
DOCUMENT SPECIALIST DOCUMENTATION REVIEW: THIS RN HAS PERSONALLY REVIEWED DOCUMENTATION BY STUDENT NURSE. ALL APPROPRIATE IV PUSHES DIRECTLY OBSERVED BY THIS RN. ALL CONTROLLED SUBSTANCES GIVEN BY THIS RN.
[2024-10-02 08:48] LABS: AMITRIPTYLINE, QUANT, URN <100 ng/mL; CLOMIPRAMINE QUANT, URN <200 ng/mL; DESIPRAMINE QUANT, URN <100 ng/mL; DOXEPIN QUANT, URN <100 ng/mL; IMIPRAMINE QUANT, URN <100 ng/mL; NORCLOMIPRAMINE QUANT, URN <200 ng/mL; NORDOXEPIN QUANT, URN <100 ng/mL; NORTRIPTYLINE, QUANT, URN <100 ng/mL; PROTRIPTYLINE QUANT, URN <100 ng/mL
== END 2024-09-29 17:30 | DRG 918 ==
LOC: ER 19:00 → ICUE 19:01 → SURS 09-28 21:05
PROVIDERS: Emergency Medicine; Student in an Organized Health Care Education/Training Program; ADMIT Internal Medicine
DX: T43.592A Poisoning by other antipsychotics and neuroleptics, intentional self-harm, initial encounter (principal); E87.6 Hypokalemia; E80.6 Other disorders of bilirubin metabolism; R94.31 Abnormal electrocardiogram [ECG] [EKG]; F10.90 Alcohol use, unspecified, uncomplicated; F20.9 Schizophrenia, unspecified; Z87.891 Personal history of nicotine dependence
CPT/HCPCS: 36415; 80047; 80048; 80053; 80178; 80320; 81003; 83735; 84100; 84439; 84443; 85014; 85025; 93005; 93010; 94762; 96360; 96361; 96376; 99285-25; A9270; G0378; G0480; G0481; J1650; J3480; J7030; J7050

== ENCOUNTER 2024-09-29 15:43 | Inpatient (IN) | payer OTHER ==
[~2024-09-29] VITALS: Ht 182.9 cm; Wt 126.7 kg
--- NOTE | 2024-09-29 18:10 | NUR ---
INITIAL ADMIT PT ARRIVED TO [facility] AT 1754, GILBERTO DAVILA AND THIS RN WENT TO PICK HIM UP AND ESCORT HIM FROM RM #[id number] AT [facility]. PT WAS VERY PLEASANT AND COOPERATIVE. BELONGINGS COLLECTED AND IN STORAGE. SKIN CHECK COMPLETED BY THIS RN AND CIARA MIRELES. NO ISSUES IDENTIFIED ON THE SKIN CHECK. PT CHANGED INTO [facility] APPROVED SCRUBS. TAKEN TO DINING ROOM WHERE HE HAD 2 ROAST BEEF SANDWICHES AND AN ENSURE. PT DID NOT RECEIVE DINNER MEAL WHILE IN #228. ORIENTED TO UNIT AND ROOM, HE STS HE'S BEEN HERE BEFORE AND IS FAMILIAR WITH THE UNIT. PT WEIGHT 126.7 kg AND HE IS 6'0". HE WILL RECIEVE Q15 MIN VISUAL SAFETY CHECKS. INTAKE WILL BE COMPLETED DURING MEDIA SALES EXECUTIVE
[2024-09-29] MEDS ORDERED: DiphenhydrAMINE HCl 50 MG Cap PO PRN (18:45)
[2024-09-29] MEDS ORDERED: Acetaminophen 325 MG TABLET PO PRN (18:45)
[2024-09-29] MEDS ORDERED: Polyethylene Glycol 3350 17 gm PO PRN (18:45)
[2024-09-29] MEDS ORDERED: Melatonin 3 MG Tab PO PRN (18:45)
[2024-09-29] MEDS ORDERED: TraZODone HCl 50 MG Tab PO PRN (18:45)
[2024-09-29] MEDS ORDERED: Haloperidol 5 MG Tab PO PRN (18:50)
[2024-09-29] MEDS ORDERED: HydrOXYzine Pamoate 50 MG Cap PO PRN (18:50)
[2024-09-29] MEDS ORDERED: OLANZapine ODT 10 MG Tab MM PRN (18:50)
[2024-09-29] MEDS ORDERED: Haloperidol Lactate Inj. 5 MG/ML Injection IM PRN (18:50)
[2024-09-29] MEDS ORDERED: Calcium Carbonate 500 MG Tab Chew PO PRN (18:50)
[2024-09-29] MEDS ORDERED: DiphenhydrAMINE HCl 50 MG/ML 1ML Vial IM PRN (18:50)
[2024-09-29] MEDS ORDERED: Aluminum Hydroxide 320MG/5ML 473 ML PO PRN (18:50)
[2024-09-29] MEDS ORDERED: Ondansetron 4 MG SoluTab MM PRN (18:55)
[2024-09-29] MEDS ORDERED: LORazepam 2 MG/ML 1ML Injection IM PRN (18:55)
[2024-09-29] MEDS ORDERED: LORazepam 2 MG Tab PO PRN (18:55)
[2024-09-29] MEDS ORDERED: Ibuprofen 600 MG Tab PO PRN (18:55)
[2024-09-29 20:29] VITALS: BP 125/89
--- NOTE | 2024-09-30 05:58 | NUR ---
SHIFT SUMMARY Pt is A&O, calm, cooperative, eye contact is appropriate. Pt presents as anxious, affect is flat. Pt denies SI, HI, hallucinations. No complaints of pain or other medical issues. Pt came out of his room for admission assessment and to sign his admission paperwork. Pt was bouncing his leg throughout the assessment as well as later in his room. Pt given PRN lorazepam for anxiety. Pt returned to his room after the admission assessment and told marketing underwriter that he would rather sleep that get up for evening snack. Pt out of bed about 0450 and requested PRN hydroxyzine for anxiety. Pt also requested that he be allowed to go to his motel room to retrieve his possessions, as he believes that he is about to be evicted. Staff continues q15m safety checks.
[2024-09-30 06:46] LABS: CHOL/HDL RATIO 3.3; Cholesterol 171 mg/dL (50-200); HDL Cholesterol 52 mg/dL (>39); Low Density Lipoprotein Chol 103 mg/dL (0-110); Triglycerides 82 mg/dL (30-140); Very Low Density Lipoprot Chol 16 mg/dL (6-28)
[2024-09-30 07:54] VITALS: BP 136/108
[2024-09-30] MEDS ORDERED: RisperiDONE 1 MG Tab PO SCH ×2 (09:00)
[2024-09-30] MEDS ORDERED: Thiamine HCl 100 MG Tab PO SCH (09:00)
[2024-09-30] MEDS ORDERED: Multivitamins/Minerals TAB PO SCH (09:00)
[2024-09-30] MEDS ORDERED: Folic Acid 1 MG TAB PO SCH (09:00)
[2024-09-30] MEDS ORDERED: Multivitamins 1 Tab PO SCH (09:00)
[2024-09-30 09:03] LABS: Albumin, Blood 3.4 g/dL (3.4-5.0); Bilirubin, Total 0.6 mg/dL (0.1-1.0); Bun/Creatinine Ratio 13.3 (12.0-20.0); Calcium, Blood 9.2 mg/dL (8.5-10.1); Creatinine, Blood 0.83 mg/dL (0.60-1.20); Globulin, Blood 3.5 g/dL (2.2-4.0); Potassium, Blood 3.8 mmol/L (3.5-5.5); Total Protein, Blood 6.9 g/dL (6.4-8.2)
[2024-09-30] MEDS ORDERED: LORazepam 1 MG Tab PO PRN (10:05)
--- NOTE | 2024-09-30 17:12 | NUR ---
SHIFT SUMMARY PT A/O X4; DENIES SI, HI, AND HALLUCINATIONS. PT'S AFFECT IS FLAT AND HE IS SOFT SPOKEN. PT REPORTED INCREASED ANXIETY TWICE THIS SHIFT AND MEDICATED PER EMR WITH GOOD EFFECT. HE ISOLATED IN HIS ROOM FOR THE MAJORITY OF THE SHIFT BUT DID ATTEND MEALS.
[2024-09-30 20:09] VITALS: BP 139/115
--- NOTE | 2024-10-01 04:47 | NUR ---
SHIFT SUMMARY: PATIENT WAS IN HIS ROOM AT THE BEGINNING OF THE SHIFT, RESTING QUIETLY. HE AWAKENED TO THE SOUND OF HIS NAME AND WAS ABLE TO HAVE A LINEAR CONVERSATION WITH RN. HE DENIED SUICIDAL IDEATION, THOUGHTS OF SELF HARMING AND A/V HALLUCINATIONS. HIS ANSWERS WERE SHORT BUT COMPLETE. HE WAS SHAKING HIS LEG THE ENTIRE TIME HE WAS TALKING, AND ADMITTED TO BEING "ANXIOUS" BUT STATED, "i DON'T KNOW WHY". HE PARTICIPATED IN SNACK AND WRAP UP GROUP IN THE DINING AREA AT 1999. HE WAS COMPLIANT WITH EVENING MEDICATION ADMINISTRATION. AFTER SNACK, HE WENT BACK TO HIS ROOM AND WAS NOTED TO BE IN BED RESTING WITH EYES CLOSED AND RESPIRATIONS CONFIRMED FOR MOST OF THE REMAINDER OF THE SHIFT. HE WAS UP X1 TO USE THE BATHROOM, BUT WENT RIGHT BACK TO BED. CONTINUING TO MONITOR FOR SAFETY WITH Q15 MINUTE CHECKS.
[2024-10-01 06:42] LABS: Albumin, Blood 3.6 g/dL (3.4-5.0); Bilirubin, Total 0.5 mg/dL (0.1-1.0); Bun/Creatinine Ratio 14.3 (12.0-20.0); Calcium, Blood 9.1 mg/dL (8.5-10.1); Creatinine, Blood 0.84 mg/dL (0.60-1.20); Globulin, Blood 3.5 g/dL (2.2-4.0); Potassium, Blood 3.8 mmol/L (3.5-5.5); Total Protein, Blood 7.1 g/dL (6.4-8.2)
[2024-10-01 07:53] VITALS: BP 136/99
[2024-10-01] MEDS ORDERED: RISPERIDONE MICROSPHERES IM SCH (12:00)
--- NOTE | 2024-10-01 16:43 | NUR ---
PATIENT HAS A DISHEVELED APPEARANCE, ALTHOUGH HE SHOWERED THIS MORNING. HE HAS SPENT THE MAJORITY OF HIS DAY IN BED. HE IS AWAKE WHILE LAYING IN BED, AND SHAKES HIS LEG/FOOT QUICKLY. HE STATES HIS ANXIETY IS BETTER THAN YESTERDAY. DURING LUNCH, THE PATIENT WALKED INTO THE DINNING ROOM FOR JUST MINUTES, STATED HE ATE, BUT KNOWING THAT HE WAS NOT IN THE DINNING ROOM LONG ENOUGH TO EAT, THIS ORDER EXPEDITER QUESTIONED HIM. HE STATES, I AM JUST NOT VERY HUNGRY. PATIENT DID NOT REPORT HALLUCINATIONS, OR SI. HE DID REQUEST TO CALL THE [employer], AND AT 4PM, HE WAS ABLE TO MAKE CONTACT WITH SOMEONE AT THE [place]. PATIENT IS POLITE WITH SOFT SPEECH AND FLEETING EYE CONTACT.
[2024-10-01 20:21] VITALS: BP 133/98
--- NOTE | 2024-10-02 04:08 | NUR ---
SHIFT SUMMARY PATIENT UP WALKING IN AND OUT OF HIS ROOM FREQUENTLY, DENIES FEELING ANXIOUS. VERBALIZED THAT HE IS "FEELING BETTER". DENIES SI, HI, OR AVH. AT TIMES SLOW TO ANSWER QUESTIONS BUT ANSWERING ALL QUESTIONS APPROPRIATELY . COOPERATIVE WITH MEDICATIONS AFTER EATING SNACK. APPEARS TO BE SLEEPING WELL WITH RESP EVEN AND UNLABORED. CONTINUE TO MONITOR Q15MIN
[2024-10-02 09:00] VITALS: BP 127/99
--- NOTE | 2024-10-02 16:47 | NUR ---
IMPORTANT OUTPATIENT INFORMATION Patient is member of Aid and Assist program at [facility] and is mandated to attend mental health court. Forensics top case assembler is Bethanie Astorga at [phone], fire prevention officer is Johnathan Rocha at [phone]
[2024-10-02] MEDS ORDERED: Paliperidone Palmitate 234 MG/1.5 ML SYR IM ONE (16:50)
--- NOTE | 2024-10-02 18:30 | NUR ---
SHIFT SUMMARY PT AxOx4. PLEASANT AND COOPERATIVE WITH CARE. PT'S AFFECT SEEMS CONSTRICTED OR BLUNTED. HE REPORTS MOOD "SO, SO" THIS AM, AND DECLINES FURTHER ELABORATION. PT DENIED SI/HI AND AVTH TODAY. HE HAS BEEN FOLLOWING TREATMENT PLAN INCLUDING TAKING MEDICATIONS PRESCRIBED, ATTENDING [facility] THERAPY GROUPS AND MINGLING APPROPRIATELY ON THE UNIT WITH STAFF/PEERS. PT REQUESTED ANXIETY MEDICATION x1 THIS SHIFT. PT RECEIVED HIS INVEGA SUSTENNA #1 INJECTION THIS SHIFT. PATIENT EDUATION PROVIDED. PT DENIES ANY FURTHER QUESTIONS OR NEEDS AT THIS TIME. HE IS CURRENTLY CALMLY WALKING IN PERSAUD ON UNIT.
[2024-10-02 20:14] VITALS: BP 144/96
--- NOTE | 2024-10-03 04:35 | NUR ---
Pete is A+OX4, and very pleasant to work with. HE enjoys being out in the milieu with his peers in the TV room, and can be found there most of his free time. He denies SI, HI and AVTH during evening assessment. Again, requested Ativan and Vistaril at 1915 for comfort. He is looking forward to seeing his doctor. Will continue close monitoring every 15 minutes for safety and comfort
[2024-10-03 07:32] LABS: Albumin, Blood 3.6 g/dL (3.4-5.0); Bilirubin, Direct 0.2 mg/dL (0.0-0.3); Bilirubin, Indirect 0.4 mg/dL (0.1-0.7); Bilirubin, Total 0.6 mg/dL (0.1-1.0); Globulin, Blood 3.6 g/dL (2.2-4.0); Total Protein, Blood 7.2 g/dL (6.4-8.2)
[2024-10-03 08:48] VITALS: BP 130/105
--- NOTE | 2024-10-03 17:35 | NUR ---
SHIFT SUMMARY PT AxOx4. PLEASANT AND COOPERATIVE WITH CARE. PT DENIES SI/HI AND AVTH THIS SHIFT. HE HAS BEEN FOLLOWING HIS TREATMENT PLAN INCLUDING TAKING MEDICATIONS NEEDED, ATTENDING [facility] THERAPY GROUPS AND MINGLING APPROPRIATELY WITH STAFF/PEERS, ALTHOUGH HE IS SOMEWHAT SHY AND ISOLATIVE TO HIS ROOM. PT MET WITH HOSPITALIST TODAY FOR FOLLOW UP ON ELEVATED LIVER ENZYMES. OUTPATIENT FOLLOW UP RECOMMENDED AT THIS TIME. PT DENIES ANY NEW SYMPTOMS FROM #1 INVEGA IM INJECTION THAT WAS GIVEN YESTERDAY. PT IS CURRENTLY IN HIS ROOM, RESTING ON BED. DENIES ANY NEEDS AT THIS TIME.
[2024-10-03 19:25] VITALS: BP 144/98
[2024-10-03 20:54] LABS: ANTI-NUCLEAR AB ANA,IGG ELISA None Detected (None Detected)
--- NOTE | 2024-10-04 04:28 | NUR ---
SHIFT SUMMARY PT REPORTED ANXIETY DURING EVENING REPORT AND WAS MEDICATED BY LOGGING TRACTOR OPERATOR SWAMP WITH PRN VISTARIL AND ATIVAN. ON MY ASSESSMENT PT STATED HIS MOOD WAS "BETTER. HE DENIES ANY SI/HI, THOUGHTS OF SELF HARM OR HALLUCINATIONS. NO INTERNAL STIMULI NOTED. PT WAS CALM AND COOPERATIVE, COMPLIANT WITH MEDICATIONS. HE RECEIVED PRN TRAZODONE. HE WENT TO BED SHORTLY AFTER EVENING SNACK AND HAS SLEPT/RESTED MOST OF THE NIGHT. Q15 MINUTE CHECKS TO CONTINUE.
[2024-10-04 08:07] VITALS: BP 130/91
--- NOTE | 2024-10-04 11:00 | NUR ---
Spiritual Care Visit. WHen I visited [facility], the Pt. verbalized interest in meeting. Met Pt. in consult room. This admissions gate attendant has seen this Pt. on previous hospital visits. Pt. is pleasant but displayed evidence of some nerves, especially with leg twitching. Considered matters of his ja and family. Listened with interest and a calming presence. Pt. verbalized concern that his belongings would still be at the [employer] motel. Pt. displayed evidence of general trust, but was also guarded in his responses. Prayed for Pt. Pt. verbalized gratitude for the spiritual care visit.
--- NOTE | 2024-10-04 17:30 | NUR ---
SHIFT SUMMARY NO ACUTE EVENTS TODAY. PT DENIES SI, HI, AVTH. PT DOES HESITATE WHEN ANSWERING IF PT HAS AUDITORY HALLUCINATIONS, BUT CONTINUES TO DENY. PT AFFECT APPEARS BRIGHTER THAN WHEN THIS RN LAST TOOK CARE OF THIS PT ON WEDNESDAY. PT ENDORSES FEELING "BETTER" D/T HAVING HIS imo.im VERSION BIBLE AND TALKING TO [place] GUIDE. WENT TO GROUPS, MEAL TIMES, AND IS PLEASANT AND COOPERATIVE. MEDICATION COMPLIANT.
[2024-10-04 19:30] VITALS: BP 136/95
--- NOTE | 2024-10-05 04:18 | NUR ---
SHIFT SUMMARY PT PACING HALLS AT START OF SHIFT, HAD JUST BEEN MEDICATED WITH ATIVAN FOR ANXIETY PRIOR TO THE START OF MY SHIFT. HE REPORTED IMPROVED ANXIETY. HE DENIED ANY SI, HI, THOUGHTS OF SELF HARM OR HALLUCINATIONS. NO INTERNAL STIMULI NOTED. PT STATED HIS MOOD WAS "OKAY". HE HAD A FLAT AFFECT AND APPEARED SAD. HE WAS CALM AND COOPERATIVE, COMPLIANT WITH MEDICATIONS, AND RECEIVED PRN TRAZODONE. HE HAD HIS EVENING SNACK AND WENT TO BED. Q15 MINUTE CHECKS PER PT SAFETY.
[2024-10-05 08:54] VITALS: BP 139/98
--- NOTE | 2024-10-05 17:34 | NUR ---
SHIFT SUMMARY NO ACUTE EVENTS TODAY. PT DENIES SI, HI, AVTH. PT MOOD APPEARS BRIGHTER, ESPECIALLY WHEN PT WAS NOTIFIED ABOUT DC THIS COMING WEDNESDAY. PT APPEARS EXCITED TO GO BACK TO HIS MOTEL. PT WENT TO GROUPS, MEAL TIMES, AND HAS BEEN READING BIBLE.
[2024-10-05 19:39] VITALS: BP 143/90
--- NOTE | 2024-10-06 04:46 | NUR ---
SHIFT SUMMARY PT WALKING IN HALLS/ROOM AT START OF SHIFT. REPORTS HIS MOOD GOOD AND HE IS EXCITED TO BE DISCHARGED ON WEDNESDAY. PT DENIES ANY SI, HI, THOUGHTS OF SELF HARM OR HALLUCINATIONS. NO INTERNAL STIMULI NOTED. PT PLEASANT AND COMPLIANT WITH MEDS. HE RECEIVED PRN TRAZODONE. HE DECLINED EVENING SNACK, STATED HE WASN'T HUNGRY. HE PRESENTED TO NURSES STATION AT 0 AND REQUESTED AND RECEIVED PRN DOSE OF ATIVAN AND SECOND DOSE OF TRAZODONE AND WENT BACK TO BED. Q15 MINUTE CHECKS TO CONTINUE PER PT SAFETY.
[2024-10-06 08:51] VITALS: BP 123/97
--- NOTE | 2024-10-06 17:03 | NUR ---
SHIFT SUMMARY: PT ALERT, ORIENTED AND COOPERATIVE WITH CARE. DENIES SI, HI AND AVH. PT WAS PRESENT ON THE UNIT AND PARTICIPATED IN GROUPS. PT WAS MEDICATED WITH PRN ATIVAN PER EMAR FOR C/O 11/09 ANXIETY. PT SPENT TIME IN HIS ROOM RESTING ON HIS BED AND PACING IN THE HALLWAY.
[2024-10-06 21:02] VITALS: BP 124/94
--- NOTE | 2024-10-07 05:08 | NUR ---
SHIFT SUMMARY: PT IN HAVING DINNER THE BEGINNING OF THE SHIFT. NO COMPLAINTS FROM PT. COMPLIANT WITH TAKING MEDS. PT IS EXCITED TO BE GOING HOME ON WEDNESDAY. STATES HE WILL BE DOING THINGS DIFFERENLY THIS TIME, DENIES SI, HI, AND AVH. PACED IN THE HALLS SOME BEFORE GOING TO BED FOR THE NIGHT. PT HAS SLEPT WELL. TOOK PRN TRAZODONE FOR SLEEP AID. WILL CONTINUE TO MONITOR
[2024-10-07 07:53] VITALS: BP 127/92
--- NOTE | 2024-10-07 08:26 | NUR ---
SHIFT ASSESSMENT: PT DENIED SI, HI, AVH, ANX AND PHYSICAL PAIN. HE DESCRIBED HIS MOOD , "HAPPY." HIS AFFECT WAS EUTHYMIC. PT WENT TO MORNING COFFEE AND PARTICIPATED IN "CHECK-IN COMMUNITY GROUP." PT IS PLEASANT AND COOPERATIVE WITH CARE.
--- NOTE | 2024-10-07 17:27 | NUR ---
PT HAS BEEN OUT IN THE PERSAUD WALKING THIS AFTERNOON FOR SHORT PERIODS. HE STAYS TO HIMSELF AND DOESN'T COMMUNICATE WITH OTHERS. HE DOES ANSWER QUESTIONS AND SMILES WHEN SPOKEN TO. HE IS PLEASANT AND COOPERATIVE. PT IS RESTING ON HIS BED AT THIS TIME.
[2024-10-07 19:41] VITALS: BP 120/92
--- NOTE | 2024-10-07 22:07 | NUR ---
PT A/O X4. PLESANT AND COOPERATIVE. PACES IN PERSAUD FREQUENTLY AND THEN GOES BACK TO HIS ROOM. PT FELT ANXIOUS THIS EVENING. GIVEN VISTARIL 50 MG FOR THIS. AT 2044 PT FELT BETTER HE SAID. GIVEN NIGHT TIME MEDS. MOOD IS HAPPY PER PT. WILL CONTINUE TO MONITOR.
--- NOTE | 2024-10-08 04:45 | NUR ---
Patient care transferred to this RN at 0030. No changes from 2200 note. Patient oob once for water. Pleasant and cooperative. Will continue close monitoring every 15 minutes for comfort and safety.
[2024-10-08 07:34] VITALS: BP 116/80
[2024-10-08] MEDS ORDERED: Paliperidone Palmitate 156 MG/ML SYR IM SCH (09:00)
[2024-10-08] MEDS ORDERED: INVEGA SUS IM (10:55)
--- NOTE | 2024-10-08 17:57 | NUR ---
SHIFT SUMMARY: PT ALERT, ORIENTED AND COOPERATIVE WITH CARE. HE DENIES SI, HI AND AVH. COMPLIANT WITH MEDICATIONS. PT WAS PRESENT ON THE UNIT AND SPENT TIME WALKING IN THE PERSAUD. HE ATTENDED MEALS AND ENGAGED WITH STAFF.
[2024-10-08 21:12] VITALS: BP 129/93
[2024-10-09 09:02] VITALS: BP 124/87
--- NOTE | 2024-10-09 11:28 | NUR ---
IMPORTANT HOSPITAL DISCHARGE INFORMATION Patient has medical and behavioral health services through the [facility] / [phone] / PCP Dr. [place] at [place] to outreach patient via telephone to set up hospital discharge appointment SW entered information into patient's discharge packet
--- NOTE | 2024-10-09 15:28 | NUR ---
DISCHARGE SUMMARY PT DC FROM [facility] AT 1514, HE WAS PICKED UP BY A PERSON FROM [employer]. ALL BELONGINGS WERE RETURNED, PT PROVIDED A PAPER SCRUB TOP, HE ONLY HAD HIS SHORTS AND SHOES. ALL PAPERWORK WAS GONE OVER AND HE STATED UNDERSTANDING. HE STATES HE HAS A FIDUCIARY WHO HELPS HIM AND USES A WRITTEN DAY TOOL AND DIE MAKER.
== END 2024-10-09 15:14 | disposition home or self-care (01) | DRG 885 ==
LOC: BHU 15:43
PROVIDERS: Internal Medicine; ADMIT Psychiatry & Neurology Psychiatry
DX: F20.0 Paranoid schizophrenia (principal); R74.01 Elevation of levels of liver transaminase levels; Z79.899 Other long term (current) drug therapy; Z87.891 Personal history of nicotine dependence; Z79.1 Long term (current) use of non-steroidal anti-inflammatories (NSAID); Z91.51 Personal history of suicidal behavior; Z91.148 Patient's other noncompliance with medication regimen for other reason
CPT/HCPCS: 36415; 80053; 80061; 80076; 83036; 86038; A9270; J2060; J2794